=== PATIENT | female | born 1965 | race Caucasian/White ===

== ENCOUNTER 2018-05-21 16:54 | Inpatient (IN) ==
[2018-05-21] MEDS ORDERED: INFLUENZA VIRUS QUAD VACCINE 0.5 ML SYR IM ONE (20:00)
[2018-05-21] MEDS ORDERED: INFLUENZA ADMINISTRATION CHARGE ONE (20:00)
--- NOTE | 2018-05-21 20:04 | History & Physical Report ---
Date of Service May 21, 2018 Assessment & Plan (1) Implantable cardioverter-defibrillator (ICD) generator end of life: Sent from Dr. Parra office Plan to get Dual chamber ICD generator change in am Device interrogation done today at Dr. Valderrama's office Will make NPO after midnight Cardiology Dr. Valderrama consult Will monitor closely in tele (2) Bronchitis: CXR showed no acute disease Has been on amoxicillin Will continue amoxicillin to complete 2 more days (3) Tobacco use: Counseling on smoking cessation (4) CKD (chronic kidney disease), stage III: Creatinine 1.1 today Continue monitor BMP (5) QT prolongation: Will avoid medications that increase QTC prolongation Plan to follow with cardiac genetic counseling (6) Hypokalemia: K 3.4 today K replaced Monitor BMP DVT px will put SCDs due to procedure in am CODE STATUS FULL CODE History of Present Illness Primary Care Provider: Segundo Stroud MD 53 yo F with PMH of dyslipidemia, chronic tobacco use, CKD stage 3, anxiety, depression, NSVT, VF arrest in 2009, celiac disease [facility] ICD generator change. Pt was recently in the ER for acute bronchitis and was discharged with prednisone and amoxicilin (had 2 more days left). Pt has been worsening SOB with minimal exertion. She said that she develops SOB just by going to the bathroom. She has been very tired lately. she said that she had chest pain with coughing that improved. She was sent by cardiology Dr. Parra for dual chamber ICD generator change in the morning. Currently denies any chest pain, palpitation, dizziness and fever. Allergies Allergy/AdvReac Type Severity Reaction Status Date / Time meloxicam Allergy Severe ANAPHYLAXIS Verified 06/04/18 23:12 vancomycin Allergy Unknown RASH Verified 06/04/18 23:12 Quinolones AdvReac Unknown unknown Verified 06/04/18 23:12 MUSCLE RELAXANT Allergy Severe ANAPHYLAXIS Uncoded 06/04/18 23:12 Home Medications Home Medications Medication Instructions Recorded Confirmed Type aspirin 81 mg PO DAILY 05/12/18 06/04/18 History atorvastatin 40 mg PO DAILY 05/12/18 06/04/18 History calcium carbonate 600 mg PO TID 05/12/18 06/04/18 History furosemide 40 mg PO DAILY PRN 05/12/18 06/04/18 History metoprolol succinate 50 mg PO DAILY 05/12/18 06/04/18 History potassium chloride 10 meq PO DAILY 05/12/18 06/04/18 History topiramate 50 mg PO DAILY 05/12/18 06/04/18 History ondansetron HCl 4 mg PO QID PRN 05/21/18 06/04/18 History cetirizine [Zyrtec] 10 mg PO DAILY #30 tab 05/22/18 06/04/18 Rx clonazepam 0.5 mg PO TID PRN #10 tab 05/22/18 06/04/18 Rx omeprazole 20 mg PO BID #60 tab 05/22/18 06/04/18 Rx ranitidine HCl 150 mg PO BID #60 tab 05/22/18 06/04/18 Rx Past Med/Surg History Social History Preferred Language: Surinamese Beliefs That Will Affect Care: None Current Living Situation: Family Feels Safe at Home: Yes Smoking Status: Current every day smoker Hx Alcohol Use: Yes Hx Substance Use: No Review of Systems All systems reviewed & are unremarkable except as noted in HPI & below Physical Exam Vital Signs (Past 24 Hours): Last Vital Signs Temp 37.0 C 05/21/18 19:15 Pulse 62 05/21/18 19:15 Resp 17 05/21/18 19:15 BP 119/78 05/21/18 19:15 Pulse Ox 97 05/21/18 19:15 Physical Exam: General- No acute distress Head- atraumatic Eyes- PERRL, EOMI, ENT- oropharynx clear Neck- supple, no JVD Lungs- clear to auscultation Heart- regular rhythm; no murmur Abdomen- normal bowel sounds, soft, nontender Extremities- no calf tenderness, +trace edema Neuro- alert, oriented x 3; PERRL, EOMI; no facial palsy; no dysarthria Skin- warm & dry Results & Data Diagnostic Findings XR chest 1V portable HISTORY: Shortness of breath. COMPARISON: Chest 05/12/2018. FINDINGS: The heart is borderline enlarged. Left-sided pacemaker/defibrillator is again noted. No pneumothorax. No pleural effusions. No focal lung consolidations to suggest pneumonia. No evidence for pulmonary edema. IMPRESSION: No acute process. Electronically signed by: Arun Alonzo M.D. 05/21/2018 8:36 PM Dictated: 05/21/182035 Transcribed: 05/21/182035
[2018-05-21 20:07] LABS: Hematocrit (blood only) 40.3 % (37-47); Hemoglobin 13.6 g/dL (12.0-16.0); Mean Corpuscular Hgb Conc 33.7 g/dL (32-36); Mean Platelet Volume 9.7 fL (7.4-10.4); Platelet Count 204 K/uL (130-400); RDW Coefficient of Variation 14.3 % (11.5-14.5); RDW Standard Deviation 46.1 fL (36.4-46.3); Red Blood Count 4.53 M/uL (4.2-5.4); White Blood Count 10.77 K/uL (4.8-10.8)
[2018-05-21 20:17] LABS: BUN Creatinine Ratio 9.3 (10-20); Calcium 8.5 mg/dl (8.5-10.1); Creatinine Clr Calc Pharmacy 56.1 ml/min; Est GFR (African American) 63.1; Est GFR (Non-African American) 54.5; Potassium 3.4 mmol/L (3.5-5.1)
--- NOTE | 2018-05-21 20:37 | XRay Report ---
XR chest 1V portable HISTORY: Shortness of breath. COMPARISON: Chest 05/12/2018. FINDINGS: The heart is borderline enlarged. Left-sided pacemaker/defibrillator is again noted. No pne umothorax. No pleural effusions. No focal lung consolidations to suggest pneumonia. No evidence for p ulmonary edema. IMPRESSION: No acute process. Electronically signed by: Arun Alonzo M.D. 05/21/2018 8:36 PM
[2018-05-21] MEDS ORDERED: POTASSIUM CHLORIDE 10 MEQ TABCR PO STA (20:55)
[2018-05-21] MEDS: AMOXICILLIN/CLAVULANATE 875 MG TAB PO SCH (21:46)
[2018-05-22 06:48] LABS: BUN Creatinine Ratio 11.3 (10-20); Creatinine Clr Calc Pharmacy 59.2 ml/min; Est GFR (African American) 67.3; Est GFR (Non-African American) 58.1; Potassium 3.7 mmol/L (3.5-5.1)
--- NOTE | 2018-05-22 07:46 | History & Physical Bridge Note ---
Date of Service May 22, 2018 History & Physical Bridge Note I have examined the patient, reviewed the History & Physical and in the interval since the performance of the History & Physical I have noted the following changes of clinical significance: no changes noted
--- NOTE | 2018-05-22 07:46 | Pre Anesthesia Assessment ---
Date of Service May 22, 2018 Pre Sedation Assessment Vital Signs Temp Pulse Pulse Pulse Resp BP Pulse Ox 05/22/18 07:17 36.7 C 63 19 107/51 L 05/22/18 04:32 36.9 C 68 17 108/43 L 95 05/22/18 00:15 36.8 C 68 15 99/58 L 96 05/22/18 00:00 65 05/21/18 19:30 05/21/18 19:15 37.0 C 62 17 119/78 97 05/21/18 18:21 37.6 C H 67 18 137/77 100 Pulse Ox 05/22/18 07:17 05/22/18 04:32 05/22/18 00:15 05/22/18 00:00 05/21/18 19:30 94 05/21/18 19:15 05/21/18 18:21 Cardiovascular RRR, no murmur, no edema Respiratory normal respiratory effort, lungs clear to auscultation Pre-Sedation Airway Assessment Smoking Status: Current every day smoker Hx Sleep Apnea: No Hx Difficult Intubation: No Short, Thick Neck: No Thyromental Distance: < 3.5 Finger Breadths Oral Cavity: + Dental Abnormalities Mallampati Class: II ASA: ASA3 Procedure Planning Contraindications for Sedation: none Current Medications Reviewed: Yes Notes The planned sedation has been discussed with the patient. Informed Consent was obtained. I have identified the patient, determined the appropriateness of sedation and have assessed the patient immediately prior to the procedure. All medicine(s) and interventions are by my order.
[2018-05-22] MEDS ORDERED: CEFAZOLIN 2000MG 2,000 MG/15 ML SYR IV STA (07:51)
[2018-05-22] MEDS: AMOXICILLIN/CLAVULANATE 875 MG TAB PO SCH (08:01)
[2018-05-22] MEDS ORDERED: POTASSIUM CHLORIDE 10 MEQ TABCR PO SCH (09:00)
[2018-05-22] MEDS ORDERED: METOPROLOL SUCC 50MG EXT REL TAB PO SCH (09:00)
[2018-05-22] MEDS ORDERED: TOPIRAMATE 50 MG TAB PO SCH (09:00)
[2018-05-22] MEDS ORDERED: ATORVASTATIN 40 MG TAB PO SCH (09:00)
[2018-05-22] MEDS ORDERED: FUROSEMIDE 20 MG TAB PO SCH (09:00)
[2018-05-22] MEDS ORDERED: PANTOprazole 40 MG TAB PO SCH (09:00)
[2018-05-22] MEDS ORDERED: fentaNYL citrate 100 MCG/2 ML VIAL ONE (10:38)
[2018-05-22] MEDS ORDERED: MIDAZOLAM HCL 1 MG/ML 2ML VIAL ONE ×2 (10:38→10:58)
[2018-05-22] MEDS ORDERED: CEFAZOLIN 250 MG/ML 1 GM VIAL ONE (10:38)
[2018-05-22] MEDS ORDERED: LIDOCAINE HCL 1% 20 ML VIAL ONE (10:44)
[2018-05-22] MEDS ORDERED: BUPIVACAINE 0.5 % 5 MG/1 ML PF 10ML VIAL ONE (10:44)
--- NOTE | 2018-05-22 11:10 | Hospitalist Progress Note ---
Date of Service May 22, 2018 Assessment & Plan (1) Implantable cardioverter-defibrillator (ICD) generator end of life: Sent from Dr. Parra office Plan to get Dual chamber ICD generator change in am Device interrogation done today at Dr. Valderrama's office Will make NPO after midnight Cardiology Dr. Valderrama consult Will monitor closely in tele (2) Bronchitis: CXR showed no acute disease Has been on amoxicillin Will continue amoxicillin to complete 2 more days (3) Tobacco use: Counseling on smoking cessation (4) CKD (chronic kidney disease), stage III: Creatinine 1.1 today Continue monitor BMP (5) QT prolongation: Will avoid medications that increase QTC prolongation Plan to follow with cardiac genetic counseling (6) Hypokalemia: K 3.4 today K replaced Monitor BMP DVT px will put SCDs due to procedure in am CODE STATUS FULL CODE Physical Exam 2 Vital Signs (Past 24 Hours): Last Vital Signs Temp 36.7 C 05/22/18 07:17 Pulse 63 05/22/18 07:17 Resp 19 05/22/18 07:17 BP 107/51 L 05/22/18 07:17 Pulse Ox 95 05/22/18 04:32
--- NOTE | 2018-05-22 11:39 | Post Anesthesia Assessment ---
Date of Service May 22, 2018 Post Sedation Assessment Vital Signs Temp Pulse Pulse Pulse Resp BP Pulse Ox 05/22/18 07:17 36.7 C 63 19 107/51 L 05/22/18 04:32 36.9 C 68 17 108/43 L 95 05/22/18 00:15 36.8 C 68 15 99/58 L 96 05/22/18 00:00 65 05/21/18 19:30 05/21/18 19:15 37.0 C 62 17 119/78 97 05/21/18 18:21 37.6 C H 67 18 137/77 100 Pulse Ox 05/22/18 07:17 05/22/18 04:32 05/22/18 00:15 05/22/18 00:00 05/21/18 19:30 94 05/21/18 19:15 05/21/18 18:21 Recovery Score Activity: Moves 4 extremities Respiration: Deep Breath/Cough Consciousness: Fully Awake Oxygen Saturation: > 92% On Room Air Discharge Sedation Level of Care: Fast Track Phase II Post Sedation Plan On clinical assessment, the patient appears to have tolerated the sedation without complications. Patient is recovering as anticipated. Patient will continue to be monitored by nursing and may be discharged when sedation discharge criteria are met per below protocol. Upon Completions of procedure and additional 15 minutes continue every 5 minute vital signs and the P.A.R. score; then discharge to a Phase I or Fast Track to Phase II per the following guidelines: * Discharge Patient to appropriate Phase II area if PAR is 8 or greater or return to pre- procedure baseline. The post - procedure orders will be as directed. * If PAR score is less than 8 or not return to pre-procedure baseline then patient will follow Phase I monitoring till PAR is reached for Phase II. The Phase I may be done in procedure room or may call to secure a Phase I area. * �If naloxone or flumazenil are used for reversal, hold in Phase I for continued monitoring from when last reversal dose was given for a minimum of 60 minutes or longer pending the nurse and/or physician discretion of patient condition before discharge to Phase II.� Please call the Sedation Physician to re-evaluate and complete post-note for discharge to Phase II area. Do NOT discharge from procedure sedation or Phase 1 until post- sedation evaluation note is complete by procedure /sedation MD Sedation Discharge Instructions to be given to the patient at discharge to home.
--- NOTE | 2018-05-22 11:40 | Operative Report ---
Post Operative Report Pre & Post Diagnosis ICD at EOS, prolonged QT Operation Date: 05/22/18 12:00 <No data on this case meets the specified criteria> Procedure Operation Date: 05/22/18 12:00 Actual Procedures p ICD Gen Change Dual - Kerrie Parra DO Surgeon Kerrie Parra, Cardiology Specialist none Estimated Blood Loss 5 Findings Consistent with Post-Op Diagnosis Specimens none Description of Procedure see official report I attest to the content of the Intraoperative Record and any orders documented therein. Any exceptions are noted below.
--- NOTE | 2018-05-22 13:20 | Discharge Summary ---
Date of Service May 22, 2018 Admission HPI Per Admitting Provider 53 yo F with PMH of dyslipidemia, chronic tobacco use, CKD stage 3, anxiety, depression, NSVT, VF arrest in 2009, celiac disease was sent from Dr. Parra [facility] as a direct admission for dual chamber ICD generator change. Pt was recently in the ER for acute bronchitis and was discharged with prednisone and amoxicilin (had 2 more days left). Pt has been worsening SOB with minimal exertion. She said that she develops SOB just by going to the bathroom. She has been very tired lately. she said that she had chest pain with coughing that improved. She was sent by cardiology Dr. Parra for dual chamber ICD generator change in the morning. Currently denies any chest pain, palpitation, dizziness and fever. Admission Exam Per Admitting Provider General- No acute distress Head- atraumatic Eyes- PERRL, EOMI, ENT- oropharynx clear Neck- supple, no JVD Lungs- clear to auscultation Heart- regular rhythm; no murmur Abdomen- normal bowel sounds, soft, nontender Extremities- no calf tenderness, +trace edema Neuro- alert, oriented x 3; PERRL, EOMI; no facial palsy; no dysarthria Skin- warm & dry Principal Diagnosis Pacemaker generator end-of-life Postoperative state Discharge Data Allergies Allergy/AdvReac Type Severity Reaction Status Date / Time meloxicam Allergy Severe ANAPHYLAXIS Verified 05/12/18 15:04 vancomycin Allergy Unknown RASH Verified 05/12/18 15:04 Quinolones AdvReac Unknown unknown Verified 05/12/18 15:04 MUSCLE RELAXANT Allergy Severe ANAPHYLAXIS Uncoded 05/12/18 15:04 Consultations 05/21/18 19:30 Consult Cardiology Routine Procedures Performed Operation Date: 05/22/18 12:00 Actual Procedures p ICD Gen Change Dual - Kerrie Parra, Hospital Course (1) Implantable cardioverter-defibrillator (ICD) generator end of life: (2) Bronchitis: (3) Tobacco use: (4) CKD (chronic kidney disease), stage III: 53-year-old female with history of V. fib arrest in [address] Parra ([facility] office for direct admission for dual-chamber ICD generator change. She had recently been in the ER for acute bronchitis which was improved on outpatient prednisone and amoxicillin, which was continued during this hospital stay. She underwent an ICD generator change on 05/22 without complications. Estimated blood loss was 5 cc. She recovered on the floor for the next couple of hours, tolerated p.o. without issue and remained hemodynamically stable. At time of discharge she had no symptoms and was feeling well. We discussed her issues with getting refills for clonazepam from her primary care doctor, with whom she was encouraged to follow-up with. PDMP query revealed clonazepam use was not chronic or persistent with only one dispensation in fall 2017. Ten pills were sent home with her as well as refills on her allergy medication. Primary care follow-up was recommended within the next week to ensure bronchitis was improved and she was doing well in postoperative state. She will follow with the pacemaker clinic as instructed and follow all activity restrictions per Dr. Parra. Total Time Total Time Spent Total Time Spent (In Minutes): 60 Total Time Includes: Examination of the Patient, Discharge Planning, Medication Reconciliation, Communication With Other Providers and Other (follow-up appointment) Discharge Plan Discharge Items Patient Disposition: Home - Self-Care Reason For Visit: ICD REPLACEMENT Discharge Diagnosis: ICD Generator change Condition: Good Discharge Goals: Improve disease control Activity: Per 'Additional Instructions' section Lifting: Gradually increase as tolerated Bathing Comment: can shower 05/23/2018 Driving/Machine Use: Resume 1 day after discharge Non-emergency contact: Primary Care Provider and Slab Worker Call non-emergency contact if: you have any medication questions, your symptoms worsen, your pain is not controlled, your pain is unusual for you and you have a fever Follow-up/Referrals: Segundo Stroud MD [Primary Care Provider] - Diet: Heart Healthy Addtl Provider Instructions: Please take all medications as instructed below. Please follow all activity restrictions and other pos-operative instructions per Cardiology as above. Device and wound check as scheduled at [facility] on Sunday05/31/2018 Someone will contact you regarding a primary care follow-up appointment tomorrow. It was a pleasure taking care of you! Please call if you have any questions or problems. You can reach a [facility] hospitalist on duty at [facility] 24 hours a day by calling [phone]. Take care of yourself. Val Mae, DO [facility] Hospitalist Prescriptions: New ranitidine HCl 150 mg Tablet 150 mg PO BID Qty: 60 RF: 0 omeprazole 20 mg Tablet,Delayed Release (Dr/Ec) 20 mg PO BID Qty: 60 RF: 0 Continue atorvastatin 40 mg tablet 40 mg PO DAILY RF: 0 metoprolol succinate 50 mg tablet extended release 24 hr 50 mg PO DAILY RF: 0 potassium chloride 10 mEq Tablet Extended Release 10 meq PO DAILY RF: 0 aspirin 81 mg Tablet,Delayed Release (Dr/Ec) 81 mg PO DAILY RF: 0 calcium carbonate 600 mg calcium (1,500 mg) tablet 600 mg PO TID RF: 0 furosemide 20 mg Tablet 40 mg PO UD PRN (Reason: Fluid Retention) RF: 0 topiramate 50 mg tablet 50 mg PO DAILY RF: 0 ondansetron HCl 4 mg Tablet 4 mg PO QID PRN (Reason: Nausea) RF: 0 amoxicillin-pot clavulanate 875-125 mg tablet 1 tab PO BID RF: 0 cetirizine [Zyrtec] 10 mg Tablet 10 mg PO DAILY Qty: 30 RF: 0 clonazepam 0.5 mg tablet 0.5 mg PO TID PRN (Reason: Anxiety) Qty: 10 RF: 0 Stand-Alone Forms: [facility] Discharge Orders: Discharge Order (Routine); Ordered 05/22/18 Ordered By: Val Mae Admission Data Admit Date/Time: 05/21/18 17:30 Attending Provider: Val Mae Admit Provider: Kvng Lux Primary Care Provider: Segundo Stroud Other Providers: Kerrie Parra Service: Telemetry Other Interventions: Discharge Summary Assessment (RN) Last Done: 05/22/18 13:38 DC Date/Time DO NOT enter until pt leaves facility: 05/22/18 17:23
--- NOTE | 2018-05-25 00:05 | Operative Report ---
DATE OF OPERATION: 05/22/2018 PREOPERATIVE DIAGNOSES: Implantable cardiac defibrillator at end of service, history of a cardiac arrest, presumed prolonged QT. POSTOPERATIVE DIAGNOSES: Implantable cardiac defibrillator at end of service, history of a cardiac arrest, presumed prolonged QT. PROCEDURE: Dual chamber rate responsive implantable cardiac defibrillator generator change. SURGEON: Kerrie Parra DO ENTRY LEVEL ASSISTANT MANAGER: None. ANESTHESIA: Monitored conscious sedation administered under my supervision by Marquise Damon. Start time 1046 end time 1134, total of 3 mg of Versed and 75 mcg of fentanyl. INTRAVENOUS FLUID: 10 mL ANTIBIOTICS: Two g of Ancef. ESTIMATED BLOOD LOSS: Less than 5 mL URINE OUTPUT: Not applicable. SPECIMENS: None. FINDINGS: See below. DRAINS: None. INDICATIONS: This is a 53-year-old female who has a past medical history for surviving a cardiac arrest, which was presumed to be due to prolonged QT. She underwent an implantable cardiac defibrillator in 2009 and it reached [facility] in 12/2016; however, she was unable to follow up in the office due to transportation issues then eventually showed up in our office this week, where her device at the end of service so she was admitted to the hospital and monitored in preparation for the generator change. CONSENT: Consent was obtained prior to the patient going into electrophysiology lab. The patient was informed of the risks, benefits, and alternative procedure. Risks include but not limited sudden cardiac , cardiac arrhythmias, cerebrovascular accident, myocardial infarction, bleeding, and infection. The patient understood these risks and agreed procedure as planned. Informed consent was obtained. DESCRIPTION OF PROCEDURE: The patient was brought into the electrophysiology lab in a fasting state. The patient was connected to continuous cardiac monitoring. A timeout was performed to ensure patient's identity and procedure correctly. The patient was prepped and draped over the left infraclavicular space in normal surgical standard fashion. Moderate conscious sedation was given throughout the procedure, patient's comfort level. Jackson precautions was maintained throughout the procedure. 10 mL of 1% lidocaine, bupivacaine mixture were given to the prior surgical incision. Incision made over the prior surgical incision. Blunt dissection performed down to the prior pulse generator. The capsule was disrupted using iris scissors. The pulse generator was freed from the capsule and removed from the pocket. The leads were tested intraoperatively, see below for results. The capsule was disrupted inferiorly and caudally to allow for new blood flow. The pocket was then flushed with copious amounts of bacitracin saline wash and inspected for hemostasis. The new generator was then attached to the leads, making sure that the pins were in appropriate position, passed set screw, and set screws were all tightened. The new generator was then placed in an antibiotic pouch and then placed in the pocket, making sure that the leads were lying flat beneath the device. The incision was then closed in 3-layer fashion, 2-0 Vicryl interrupted suture followed, 3-0 Vicryl stitch followed by a 4-0 Monocryl running stitch and Dermabond was applied. EQUIPMENT: 1. Pulse generator is an [employer] RxRevu XT DMRI SureScan [id number], serial number [id number]. 2. Right atrial lead 4076-45 cm, serial number [id number], implanted on 03/08/2010. 3. Right ventricular lead 6947-58 cm, serial number [id number], implanted on 03/08/2010. 4. The antibiotic Tyrx pouch, reference number [id number], lot number [id number]. INTRAOPERATIVE TESTIN. Right atrial lead: P-wave 7.6 millivolts, impedance 513 ohms, threshold 0.5 volts at 0.6 milliamps. 2. Right ventricular lead: R-wave 8.7 millivolts, impedance 666 ohms, threshold 1.4 volts at 2.2 milliamps. FINAL MEASUREMENTS THROUGH THE DEVICE: 1. Right atrial lead P waves 5.8 millivolts, impedance 456 ohms, threshold 0.5 volts at 0.4 milliseconds. 2. Right ventricular lead: R-wave 9.6 millivolts, impedance 589 ohms, threshold 1.5 volts at 0.4 milliseconds. FINAL PARAMETERS: MVP-R 60/140. Right atrial amplitude 1.5 volts, pulse width 0.4 milliseconds, sensitivity 0.3 millivolts. Right ventricular amplitude 3 volts, pulse width 0.4 milliseconds, sensitivity 0.3 millivolts. VT zone is set at 171 beats per minute for 20 detection intervals and a VF zone at 207 beats per minute for 18/24 detection volts. IMPRESSION: Successful rate responsive dual chamber implantable cardiac defibrillator generator change secondary to device end of service and a history of a cardiac arrest and prolonged QT. PLAN: Monitor patient post-anesthesia. She is able to go home today if family can pick her up. From my perspective, she can shower in 2 days, let water run over the incision, do not scrub it, and she should follow up in our [facility] office for device and wound check in 1 week's time. I attest to the content of the Intraoperative Record and any orders documented therein. Any exception s are noted below.
== END 2018-05-22 17:23 | disposition home or self-care (01) | DRG 245 ==
LOC: SUATTDRO 17:30 → 2S 17:30
DX: Z45.02 Encounter for adjustment and management of automatic implantable cardiac defibrillator; E87.6 Hypokalemia; I45.81 Long QT syndrome; J40 Bronchitis, not specified as acute or chronic; N18.3 Chronic kidney disease, stage 3 (moderate); E78.5 Hyperlipidemia, unspecified; Z79.899 Other long term (current) drug therapy; Z86.74 Personal history of sudden cardiac arrest; Z79.82 Long term (current) use of aspirin; F17.210 Nicotine dependence, cigarettes, uncomplicated

== ENCOUNTER 2022-03-22 10:15 | Observation (INO) ==
[2022-03-22] MEDS ORDERED: ASPIRIN CHEW 324 MG PO STA (10:33)
--- NOTE | 2022-03-22 10:40 | Emergency Department Note ---
Impression & Plan Chest pain, Elevated troponin ED Provider Note NAME: ILIANA DORADO AGE: 57 SEX: F : 1965 ARRIVES VIA: Ambulance INFORMANT: Patient ED PROVIDER(S): Abdullahi Oconnor DO CHIEF COMPLAINT: Chest HPI: Patient is a 57-year-old female with a past medical history of a cardiac arrest, CVA, CKD, hypertension, hyperlipidemia, smoker status post ICD that presents to the ER for chest pain. She notes it started around 930. Lasted for about 20 minutes. Admits to shortness of breath with it. No arm or jaw pain. No belly pain, nausea, vomiting, or diarrhea. No dysuria, urgency, or frequency. She notes that she is very anxious and it could be her anxiety but she is not sure. ROS: See above HPI for pertinent positives & negatives. A total of 10 systems reviewed and were otherwise negative. PAST MEDICAL HISTORY:See Below PAST SURGICAL HISTORY:See Below FAMILY HISTORY:See Below SOCIAL HISTORY:See Below HOME MEDICATIONS:See Below ALLERGIES:See Below VITALS:See Below PHYSICAL EXAMINATION: GENERAL: Sitting up in bed, alert, well appearing, well nourished, no distress, non-toxic EYE EXAM: normal conjunctiva. OROPHARYNX: mucous membranes are moist LUNGS: Clear to auscultation. Normal chest wall mechanics HEART: no murmurs, S1 normal and S2 normal ABDOMEN: abdomen soft, non-tender, normo-active bowel sounds, no masses, no rebound or guarding. UPPER EXTREMITIES: upper extremities are grossly normal. LOWER EXTREMITIES: No pitting edema. NEURO EXAM: Normal sensorium, cranial nerves II-XII grossly intact, normal speech, no gross weakness of arms, no gross weakness of legs. MEDICAL DECISION MAKING: Patient is a 57-year-old female who presents the ER with past medical history of AICD, cardiomyopathy, cardiac arrest, CKD, CAD for chest pain. She does take apixaban and has not missed any doses. IV was established blood work was obtained. Labs show no significant leukocytosis or anemia. BMP with slightly elevated chloride at 109. LFTs bilirubin was unremarkable. Lipase was normal. Troponin was elevated at 15. COVID was negative. EKG was nondiagnostic. Discussed with Dr. Babak Cassidy for further evaluation and admission. He discussed with cardiology and they did not recommend admission and stress test t omorrow. Patient later refused and consequently Dr. Cassidy ordered a repeat troponin. Repeat troponin increased and patient was agreeable to staying. Patient will be admitted by the hospitalist. Triage Nursing notes reviewed. Limited review of prior medical records performed Vital Signs: reviewed and remarkable for no significant abnormalities Differential diagnosis: Cardiac ischemia, aortic dissection, pulmonary embolism, pneumothorax, pne umonia, pericarditis, myocarditis, esophageal rupture, GERD, cholecystitis, pancreatitis, musculoskeletal, as well as other pathologies. ER treatment provided: See below Diagnostics interpreted by me: ECG: Sinus rhythm rate of 62 Left axis Septal Q waves T wave inversion in V4 through V6 T wave versions in the inferior leads QTC 436 Slightly changed from previous Cardiac Monitoring: An order was placed for continuous cardiac monitoring. The monitor shows a rate of 70 with sinus rhythm. Laboratory studies: As stated above and show below. Imaging studies: Portable AP upright 1 view of the chest unremarkable Consultation(s): Discussed with Dr. Babak Cassidy for admission and further evaluation Procedures: none Critical Care: None Past Med/Surg History Medical History AICD discharge (04/14/13) Anxiety Cardiac arrest "apparently secondary to ventricular arrhythmia 2009" Cardiomyopathy CKD (chronic kidney disease), stage III Depression Dyslipidemia Fracture, metacarpal Fracture, metacarpal Headache Myoclonus Briefly in 2016 Nonepileptic episode 2013, seen by Dr. Marie Pain, dental QT prolongation Stroke Tobacco use Surgical History Status post cholecystectomy Status post hysterectomy Status post implantation of automatic cardioverter/defibrillator (AICD) Family History Other No pertinent family history in first degree relatives Social History Smoking Status: Current every day smoker Tobacco Type: Cigarettes Second Hand Exposure: Yes; Hx Alcohol Use: Yes Alcohol type: hard liquor Hx Substance Use: No Preferred Language: Portuguese Communication Ability: Effective Stock Puller Required: No Beliefs That Will Affect Care: None Current Living Situation: Family Feels Safe at Home: Yes Assistive Devices: None Allergies Allergies Allergy/AdvReac Type Severity Reaction Status Date / Time meloxicam Allergy Severe ANAPHYLAXIS Verified 11/12/19 15:28 vancomycin Allergy Unknown RASH Verified 11/12/19 15:28 Quinolones AdvReac Unknown unknown Verified 11/12/19 15:28 MUSCLE RELAXANT Allergy Severe ANAPHYLAXIS Uncoded 11/12/19 15:28 Avelox TABS Allergy Unknown Uncoded 11/12/19 15:28 Ciprofloxacin HCl TABS Allergy Unknown Uncoded 11/12/19 15:28 Ibuprofen TABS Allergy Unknown Uncoded 11/12/19 15:28 Levaquin TABS Allergy Unknown Uncoded 11/12/19 15:28 levoFLOXacin TABS Allergy Unknown Uncoded 11/12/19 15:28 Naproxen TABS Allergy Unknown Uncoded 11/12/19 15:28 Home Meds Home Medications Medication Instructions Recorded Confirmed atorvastatin 40 mg tablet 40 mg PO DAILY 05/12/18 11/12/19 calcium carbonate 600 mg calcium 600 mg PO TID 05/12/18 11/12/19 (1,500 mg) tablet potassium chloride 10 mEq 10 meq PO DAILY 05/12/18 11/12/19 tablet,extended release apixaban 5 mg tablet (Eliquis) 5 mg PO BID 09/30/19 11/12/19 bupropion HCl 300 mg 24 hr tablet, 300 mg PO QAM 09/30/19 11/12/19 extended release (Wellbutrin XL) clonazepam 1 mg tablet 1 mg PO BID 09/30/19 11/12/19 clopidogrel 75 mg tablet (Plavix) 75 mg PO DAILY 09/30/19 11/12/19 furosemide 20 mg tablet 20 mg PO DAILY PRN Fluid Retention 09/30/19 11/12/19 gabapentin 300 mg capsule 300 mg PO DAILY 09/30/19 11/12/19 melatonin PO 09/30/19 11/12/19 metoprolol succinate 50 mg 25 mg PO BID 09/30/19 11/12/19 tablet,extended release 24 hr pantoprazole 20 mg tablet,delayed 20 mg PO BID 09/30/19 11/12/19 release Previous Rx's Medication Instructions Recorded cetirizine 10 mg tablet (Zyrtec) 10 mg PO DAILY #30 tabs 05/22/18 omeprazole 20 mg tablet,delayed 20 mg PO BID #60 tabs 05/22/18 release topiramate 200 mg tablet 200 mg PO BID 30 days #60 tabs 05/17/20 Results & Data (ED) Vital Signs Vital Signs - 24 hr 03/22/22 10:20 03/22/22 10:20 03/22/22 10:23 Pulse Rate 66 Pulse Rate from SpO2 Sensor Respiratory Rate 18 Respiratory Effort / Characteristics Non-Labored Spontaneous Respiratory Depth Normal Blood Pressure 128/52 L Blood Pressure Mean 77 Blood Pressure Position Sitting Pulse Oximetry 99 100 100 Oxygen Delivery Method Room Air Room Air Room Air Sepsis Recent Fever Within 48 Hours No Sepsis New/Unexplained Change in Mental Status N/A Sepsis Action Taken by Nursing No Action Required 03/22/22 10:31 03/22/22 11:00 03/22/22 11:31 Pulse Rate 72 73 66 Pulse Rate from SpO2 Sensor 65 67 66 Respiratory Rate 14 17 17 Respiratory Effort / Characteristics Respiratory Depth Blood Pressure 123/72 133/89 115/75 Blood Pressure Mean 89 103 88 Blood Pressure Position Pulse Oximetry 100 99 100 Oxygen Delivery Method Room Air Room Air Room Air Sepsis Recent Fever Within 48 Hours Sepsis New/Unexplained Change in Mental Status Sepsis Action Taken by Nursing 03/22/22 12:02 03/22/22 13:00 Pulse Rate 60 61 Pulse Rate from SpO2 Sensor 60 62 Respiratory Rate 16 14 Respiratory Effort / Characteristics Respiratory Depth Blood Pressure 94/48 L 115/64 Blood Pressure Mean 63 81 Blood Pressure Position Pulse Oximetry 99 99 Oxygen Delivery Method Room Air Room Air Sepsis Recent Fever Within 48 Hours Sepsis New/Unexplained Change in Mental Status Sepsis Action Taken by Nursing Laboratory Data Result diagrams: 03/22/22 10:47 03/22/22 10:47 Lab Results 03/22/22 03/22/22 03/22/22 Range/Units 10:47 10:47 14:03 WBC 6.98 (4.8-10.8) K/ul RBC 4.23 (3.93-5.22) M/uL Hgb 12.7 (12.0-16.0) g/dl Hct 38.7 (34.1-44.9) % MCV 91.5 (80.0-100.0) fL MCH 30.0 (25.0-34.0) pg MCHC 32.8 (32.0-36.0) g/dL RDW Std Deviation 42.7 (36.4-46.3) fL RDW Coeff of [place] 12.9 (11.5-14.5) % Plt Count 188 (130-400) K/uL MPV 10.0 (9.4-12.3) fL Immature Gran % (Auto) 0.1 % Neut % (Auto) 61.1 % Lymph % (Auto) 29.5 % [place] % (Auto) 6.3 % Eos % (Auto) 1.9 % Baso % (Auto) 1.1 % Neut # (Auto) 4.26 (1.4-6.5) K/uL Lymph # (Auto) 2.06 (1.2-3.4) K/uL [place] # (Auto) 0.44 (0.24-0.82) K/uL Eos # (Auto) 0.13 (0-0.50) K/uL Baso # (Auto) 0.08 (0-0.2) K/uL Immature Gran # (Auto) 0.01 (0.00-0.02) K/uL Sodium 142 (136-145) mmol/L Potassium 4.0 (3.5-5.1) mmol/L Chloride 109 H (98-107) mmol/L Carbon Dioxide 27 (21-32) mmol/L Anion Gap 6 (3-11) BUN 19 (6-23) mg/dl Creatinine 0.93 (0.6-1.2) mg/dl Est Cr Clr Drug Dosing 59.4 ml/min Est GFR ( Amer) 80.2 ml/min Est GFR (Non-Af Amer) 69.2 ml/min BUN/Creatinine Ratio 20.4 H (10-20) Glucose 94 (70-99(Fasting)) mg/dl Calcium 9.3 (8.5-10.1) mg/dl Total Bilirubin 0.3 (0.2-1.0) mg/dl AST 12 L (13-39) U/L ALT 8 (7-52) U/L Alkaline Phosphatase 69 (34-104) U/L Troponin I High Sens 15.1 H 20.4 H (0-14) pg/ml Total Protein 6.9 (6.0-8.3) gm/dl Albumin 4.1 (3.4-5.0) gm/dl Globulin 2.8 (2.5-4.0) gm/dl Albumin/Globulin Ratio 1.5 (0.9-2) Lipase 31 (11-82) U/L SARS-CoV-2, RNA, NAAT (NEGATIVE) 03/22/22 Range/Units Unknown WBC (4.8-10.8) K/ul RBC (3.93-5.22) M/uL Hgb (12.0-16.0) g/dl Hct (34.1-44.9) % MCV (80.0-100.0) fL MCH (25.0-34.0) pg MCHC (32.0-36.0) g/dL RDW Std Deviation (36.4-46.3) fL RDW Coeff of [place]li[place] (11.5-14.5) % Plt Count (130-400) K/uL MPV (9.4-12.3) fL Immature Gran % (Auto) % Neut % (Auto) % Lymph % (Auto) % [place] % (Auto) % Eos % (Auto) % Baso % (Auto) % Neut # (Auto) (1.4-6.5) K/uL Lymph # (Auto) (1.2-3.4) K/uL [place] # (Auto) (0.24-0.82) K/uL Eos # (Auto) (0-0.50) K/uL Baso # (Auto) (0-0.2) K/uL Immature Gran # (Auto) (0.00-0.02) K/uL Sodium (136-145) mmol/L Potassium (3.5-5.1) mmol/L Chloride (98-107) mmol/L Carbon Dioxide (21-32) mmol/L Anion Gap (3-11) BUN (6-23) mg/dl Creatinine (0.6-1.2) mg/dl Est Cr Clr Drug Dosing ml/min Est GFR ( Amer) ml/min Est GFR (Non-Af Amer) ml/min BUN/Creatinine Ratio (10-20) Glucose (70-99(Fasting)) mg/dl Calcium (8.5-10.1) mg/dl Total Bilirubin (0.2-1.0) mg/dl AST (13-39) U/L ALT (7-52) U/L Alkaline Phosphatase (34-104) U/L Troponin I High Sens (0-14) pg/ml Total Protein (6.0-8.3) gm/dl Albumin (3.4-5.0) gm/dl Globulin (2.5-4.0) gm/dl Albumin/Globulin Ratio (0.9-2) Lipase (11-82) U/L SARS-CoV-2, RNA, NAAT NEGATIVE (NEGATIVE) Administered Medications Discontinued Medications Aspirin (Aspirin Chew 324 Mg) 324 mg PO NOW STA Stop: 03/22/22 10:34 Last Admin: 03/22/22 11:01 Dose: 324 mg Documented By: [place] Imaging Data Radiologist's Impression: Chest X-Ray 03/22/22 10:23 XR chest 1V portable HISTORY: Atypical Chest pain, nonspecific COMPARISON: Chest 01/05/2019. FINDINGS: The lungs are clear. Cardiac silhouette is normal in size. No pleural effusions. No pneumothorax. There is a left-sided pacemaker/defibrillator. IMPRESSION: No acute process. ACT 112: Negative or not required by law. Electronically signed by: Arun Alonzo M.D. 03/22/2022 10:48 AM Discharge Plan Visit Data Chief Complaint: Chest Pain Stated Complaint: CHEST PAIN, ANXIETY ED Provider: Abdullahi Oconnor Discharge Problem: Chest pain, Elevated troponin Forms Stand Alone Forms: My [facility] Prescriptions Prescriptions: No Action topiramate 200 mg tablet 200 mg PO BID 30 Days Qty: 60 5RF Rx Instructions: take 100 mg in the morning, and 200 mg in the evening for 1 week, then 200 mg twice daily thereafter. clonazepam 1 mg tablet 1 mg PO BID Eliquis 5 mg tablet 5 mg PO BID clopidogrel [Plavix] 75 mg tablet 75 mg PO DAILY gabapentin 300 mg capsule 300 mg PO DAILY melatonin PO pantoprazole 20 mg tablet,delayed release (DR/EC) 20 mg PO BID bupropion HCl [Wellbutrin XL] 300 mg tablet extended release 24 hr 300 mg PO QAM atorvastatin 40 mg tablet 40 mg PO DAILY potassium chloride 10 mEq Tablet Extended Release 10 meq PO DAILY calcium carbonate 600 mg calcium (1,500 mg) tablet 600 mg PO TID furosemide 20 mg tablet 20 mg PO DAILY PRN (Reason: Fluid Retention) metoprolol succinate 50 mg tablet extended release 24 hr 25 mg PO BID cetirizine [Zyrtec] 10 mg Tablet 10 mg PO DAILY Qty: 30 0RF omeprazole 20 mg Tablet,Delayed Release (Dr/Ec) 20 mg PO BID Qty: 60 0RF Referrals Referrals: Sanjay Farias [Other]
--- NOTE | 2022-03-22 10:50 | XRay Report ---
XR chest 1V portable HISTORY: Atypical Chest pain, nonspecific COMPARISON: Chest 01/05/2019. FINDINGS: The lungs are clear. Cardiac silhouette is normal in size. No pleural effusions. No pneumot horax. There is a left-sided pacemaker/defibrillator. IMPRESSION: No acute process. ACT 112: Negative or not required by law. Electronically signed by: Arun Alonzo M.D. 03/22/2022 10:48 AM
[2022-03-22 11:10] LABS: Basophils # (auto) 0.08 K/uL (0-0.2); Basophils % (auto) 1.1 %; Eosinophils # (auto) 0.13 K/uL (0-0.50); Eosinophils % (auto) 1.9 %; Hematocrit (blood only) 38.7 % (34.1-44.9); Hemoglobin 12.7 g/dl (12.0-16.0); Immature Granulocytes # (auto) 0.01 K/uL (0.00-0.02); Immature Granulocytes % (auto) 0.1 %; Lymphocytes # (auto) 2.06 K/uL (1.2-3.4); Lymphocytes % (auto) 29.5 %; Mean Corpuscular Hgb Conc 32.8 g/dL (32.0-36.0); Mean Corpuscular Volume 91.5 fL (80.0-100.0); Monocytes # (auto) 0.44 K/uL (0.24-0.82); Monocytes % (auto) 6.3 %; Neutrophils # (auto) 4.26 K/uL (1.4-6.5); Neutrophils % (auto) 61.1 %; Platelet Count 188 K/uL (130-400); RDW Coefficient of Variation 12.9 % (11.5-14.5); RDW Standard Deviation 42.7 fL (36.4-46.3); Red Blood Count 4.23 M/uL (3.93-5.22); White Blood Count 6.98 K/ul (4.8-10.8)
[2022-03-22 11:32] LABS: Albumin Globulin Ratio 1.5 (0.9-2); Albumin Level 4.1 gm/dl (3.4-5.0); BUN Creatinine Ratio 20.4 (10-20); Bilirubin,Total 0.3 mg/dl (0.2-1.0); Calcium 9.3 mg/dl (8.5-10.1); Creatinine Clr Calc Pharmacy 59.4 ml/min; Est GFR (African American) 80.2 ml/min; Est GFR (Non-African American) 69.2 ml/min; Globulin 2.8 gm/dl (2.5-4.0); Total Protein 6.9 gm/dl (6.0-8.3)
[2022-03-22 11:38] LABS: Troponin I High Sensitivity 15.1 pg/ml (0-14)
--- NOTE | 2022-03-22 13:51 | Hospitalist Consultation ---
Date of Consultation March 22, 2022 Assessment & Plan (1) Chest pain: Single episode of chest pain resolving in 20 minutes without associated symptoms. EKGs today do show T wave inversions in V4V6 which are new from prior EKGs in 2019. The case was discussed with Dr. Oconnor and Dr. Welsh. Dr. Welsh recommended an echocardiogram today, following troponins and EKGs, and dobutamine stress test tomorrow. This was relayed to the patient who reported that she did not want to stay in the hospital, and assured me that she would arrange stress test with her PCP as outpatient. Patient is fully alert and oriented. She is fully capable of making her own medical decisions. A second troponin will be checked, and if this is stable from the prior, she will be discharged with close PCP follow-up. Whether this discharge is AGAINST MEDICAL ADVICE or not, I will defer to the ER physician. While not advisable, she is not in imminent risk of life or limb, so I do not feel strongly about discharging her AGAINST MEDICAL ADVICE. She was advised that she can always return to the ER if her chest pain were to recur. History of Present Illness History of Present Illness 57-year-old female with a history of stroke, V. fib arrest in 2009 who presents with an episode of chest pain. The patient reports that the chest pain occurred around 930 this morning. She reports she was on the phone with her 2 daughters at the time of the chest pain. The chest pain lasted for approximately 20 minutes and resolved without any intervention by the patient. There is no radiation of the chest pain, and the patient denies any associated symptoms such as shortness of breath, palpitations, lightheadedness, nausea/vomiting, upset stomach, or anything else. The patient reports that this has never happened to her before. She reports that she does not get out very often, but has never had chest pain with exertion. The patient reports that the chest pain resolved by the time she got to the hospital, and has not recurred since. Allergies Allergy/AdvReac Type Severity Reaction Status Date / Time meloxicam Allergy Severe ANAPHYLAXIS Verified 11/12/19 15:28 vancomycin Allergy Unknown RASH Verified 11/12/19 15:28 Quinolones AdvReac Unknown unknown Verified 11/12/19 15:28 MUSCLE RELAXANT Allergy Severe ANAPHYLAXIS Uncoded 11/12/19 15:28 Avelox TABS Allergy Unknown Uncoded 11/12/19 15:28 Ciprofloxacin HCl TABS Allergy Unknown Uncoded 11/12/19 15:28 Ibuprofen TABS Allergy Unknown Uncoded 11/12/19 15:28 Levaquin TABS Allergy Unknown Uncoded 11/12/19 15:28 levoFLOXacin TABS Allergy Unknown Uncoded 11/12/19 15:28 Naproxen TABS Allergy Unknown Uncoded 11/12/19 15:28 Home Medications Medication Instructions Recorded Confirmed Type atorvastatin 40 mg tablet 40 mg PO DAILY 05/12/18 11/12/19 History calcium carbonate 600 mg calcium 600 mg PO TID 05/12/18 11/12/19 History (1,500 mg) tablet potassium chloride 10 mEq 10 meq PO DAILY 05/12/18 11/12/19 History tablet,extended release cetirizine 10 mg tablet (Zyrtec) 10 mg PO DAILY #30 tabs 05/22/18 11/12/19 Rx omeprazole 20 mg tablet,delayed 20 mg PO BID #60 tabs 05/22/18 11/12/19 Rx release apixaban 5 mg tablet (Eliquis) 5 mg PO BID 09/30/19 11/12/19 History bupropion HCl 300 mg 24 hr tablet, 300 mg PO QAM 09/30/19 11/12/19 History extended release (Wellbutrin XL) clonazepam 1 mg tablet 1 mg PO BID 09/30/19 11/12/19 History clopidogrel 75 mg tablet (Plavix) 75 mg PO DAILY 09/30/19 11/12/19 History furosemide 20 mg tablet 20 mg PO DAILY PRN Fluid Retention 09/30/19 11/12/19 History gabapentin 300 mg capsule 300 mg PO DAILY 09/30/19 11/12/19 History melatonin PO 09/30/19 11/12/19 History metoprolol succinate 50 mg 25 mg PO BID 09/30/19 11/12/19 History tablet,extended release 24 hr pantoprazole 20 mg tablet,delayed 20 mg PO BID 09/30/19 11/12/19 History release topiramate 200 mg tablet 200 mg PO BID 30 days #60 tabs 05/17/20 Rx Patient History Medical History AICD discharge (04/14/13) Anxiety Cardiac arrest "apparently secondary to ventricular arrhythmia 2009" Cardiomyopathy CKD (chronic kidney disease), stage III Depression Dyslipidemia Fracture, metacarpal Fracture, metacarpal Headache Myoclonus Briefly in 2016 Nonepileptic episode 2013, seen by Dr. Marie Pain, dental QT prolongation Stroke Tobacco use Surgical History Status post cholecystectomy Status post hysterectomy Status post implantation of automatic cardioverter/defibrillator (AICD) Family History Other No pertinent family history in first degree relatives Social History Smoking Status: Current every day smoker Tobacco Type: Cigarettes Second Hand Exposure: Yes; Hx Alcohol Use: Yes Alcohol type: hard liquor Hx Substance Use: No Preferred Language: Turkmen Communication Ability: Effective Case Assistant Required: No Beliefs That Will Affect Care: None Current Living Situation: Family Feels Safe at Home: Yes Assistive Devices: None Review of Systems Review of Systems: All systems reviewed & are unremarkable except as noted in HPI & below Physical Exam Constitutional: WD/WN, vitals as above Eyes: EOM intact bilaterally; no conjunctival abnormality ENMT: external ear and nose normal, oropharynx normal Neck: trachea midline, no thyromegaly normal visual inspection Respiratory: normal respiratory effort, lungs clear to auscultation no respiratory distress Cardiovascular: RRR, no murmur, no edema Chest (Breasts): Chest: + pacemaker Gastrointestinal (Abdomen): Inspection/Auscultation: abdomen normal to inspection; abdomen not distended Musculoskeletal: no cyanosis or clubbing, extremities motor strength 5/5 Skin: no rashes, warm and dry Neurologic: moves all extremities and awake Psychiatric: Orientation: alert, oriented to person and cooperative Results & Data Results & Data ([facility]) Vital Signs (Past 12 Hours) Vital Signs Pulse Resp BP Pulse Ox O2 Del Method 03/22/22 13:00 61 14 115/64 99 Room Air 03/22/22 12:02 60 16 94/48 L 99 Room Air 03/22/22 11:31 66 17 115/75 100 Room Air 03/22/22 11:00 73 17 133/89 99 Room Air 03/22/22 10:31 72 14 123/72 100 Room Air 03/22/22 10:23 100 Room Air 03/22/22 10:20 100 Room Air 03/22/22 10:20 66 18 128/52 L 99 Room Air PG Care Time/CCT Total # of Minutes Spent Total Time Spent with Patient: Total time spent is greater than 50% in coordination of care (as documented) at patient's floor/unit and/or counseling patient: Coding Level of Care Code 98568 Office/OBS Consult Lvl 4 Diagnoses Chest pain R07.9
--- NOTE | 2022-03-22 15:24 | History & Physical Report ---
Date of Service March 22, 2022 Assessment & Plan (1) Chest pain: Plan: Single episode of chest pain resolving in 20 minutes without associated symptoms. EKGs today do show T wave inversions in V4V6 which are new from prior EKGs in 2019. The case was discussed with Dr. Oconnor and Dr. Welsh. Dr. Welsh recommended an echocardiogram today, following troponins and EKGs, and dobutamine stress test tomorrow. - Trend troponins and EKGs - Echo pending today - Stress echo tomorrow (2) Cardiac arrest: Plan: In notes, due to Vfib arrest in 2009. ICD last changed out by [facility] SUN in 2019. - No acute needs (3) CVA (cerebral vascular accident): Plan: In 12/2018. Had tPA pushed and then went to [facility] because there was some question of interventional neurology procedure, but in the end, no intervention was done per report. - Continue Plavix (4) Dyslipidemia: Plan: - Continue statin (5) Anxiety: Plan: - Continue bupropion, clonazepam - Continue topiramate for headaches (6) DVT prophylaxis: Plan: Hx of DVT in 09/2019 per neurology note. Was supposed to be on Eliquis for 3 months per that note. When asked, patient was never told to stop it and has continued it. - Continue apixaban - F/u with PCP in regards to if she needs to continue it. FULL CODE - Per patient in ER History of Present Illness Primary Care Provider: Sanjay Raymond DO 57-year-old female with a history of stroke, V. fib arrest in 2009 who presents with an episode of chest pain. The patient reports that the chest pain occurred around 930 this morning. She reports she was on the phone with her 2 daughters at the time of the chest pain. The chest pain lasted for approximately 20 minutes and resolved without any intervention by the patient. There is no radiation of the chest pain, and the patient denies any associated symptoms such as shortness of breath, palpitations, lightheadedness, nausea/vomiting, upset stomach, or anything else. The patient reports that this has never happened to her before. She reports that she does not get out very often, but has never had chest pain with exertion. The patient reports that the chest pain resolved by the time she got to the hospital, and has not recurred since. Patient initially willing to be admitted to the hospital, then decided she would prefer following up with her PCP as outpatient, then finally decided that she would remain in the hospital for a stress test. Allergies Allergy/AdvReac Type Severity Reaction Status Date / Time meloxicam Allergy Severe ANAPHYLAXIS Verified 11/12/19 15:28 vancomycin Allergy Unknown RASH Verified 11/12/19 15:28 Quinolones AdvReac Unknown unknown Verified 11/12/19 15:28 MUSCLE RELAXANT Allergy Severe ANAPHYLAXIS Uncoded 11/12/19 15:28 Avelox TABS Allergy Unknown Uncoded 11/12/19 15:28 Ciprofloxacin HCl TABS Allergy Unknown Uncoded 11/12/19 15:28 Ibuprofen TABS Allergy Unknown Uncoded 11/12/19 15:28 Levaquin TABS Allergy Unknown Uncoded 11/12/19 15:28 levoFLOXacin TABS Allergy Unknown Uncoded 11/12/19 15:28 Naproxen TABS Allergy Unknown Uncoded 11/12/19 15:28 Home Medications Medication Instructions Recorded Confirmed Type atorvastatin 40 mg tablet 40 mg PO DAILY 05/12/18 11/12/19 History calcium carbonate 600 mg calcium 600 mg PO TID 05/12/18 11/12/19 History (1,500 mg) tablet potassium chloride 10 mEq 10 meq PO DAILY 05/12/18 11/12/19 History tablet,extended release cetirizine 10 mg tablet (Zyrtec) 10 mg PO DAILY #30 tabs 05/22/18 11/12/19 Rx omeprazole 20 mg tablet,delayed 20 mg PO BID #60 tabs 05/22/18 11/12/19 Rx release apixaban 5 mg tablet (Eliquis) 5 mg PO BID 09/30/19 11/12/19 History bupropion HCl 300 mg 24 hr tablet, 300 mg PO QAM 09/30/19 11/12/19 History extended release (Wellbutrin XL) clonazepam 1 mg tablet 1 mg PO BID 09/30/19 11/12/19 History clopidogrel 75 mg tablet (Plavix) 75 mg PO DAILY 09/30/19 11/12/19 History furosemide 20 mg tablet 20 mg PO DAILY PRN Fluid Retention 09/30/19 11/12/19 History gabapentin 300 mg capsule 300 mg PO DAILY 09/30/19 11/12/19 History melatonin PO 09/30/19 11/12/19 History metoprolol succinate 50 mg 25 mg PO BID 09/30/19 11/12/19 History tablet,extended release 24 hr pantoprazole 20 mg tablet,delayed 20 mg PO BID 09/30/19 11/12/19 History release topiramate 200 mg tablet 200 mg PO BID 30 days #60 tabs 05/17/20 Rx Past Med/Surg History Medical History AICD discharge (04/14/13) Anxiety Cardiac arrest "apparently secondary to ventricular arrhythmia 2009" Cardiomyopathy CKD (chronic kidney disease), stage III Depression Dyslipidemia Fracture, metacarpal Fracture, metacarpal Headache Myoclonus Briefly in 2016 Nonepileptic episode 2013, seen by Dr. Marie Pain, dental QT prolongation Stroke Tobacco use Surgical History Status post cholecystectomy Status post hysterectomy Status post implantation of automatic cardioverter/defibrillator (AICD) Family History Other No pertinent family history in first degree relatives Social History Smoking Status: Current every day smoker Tobacco Type: Cigarettes Second Hand Exposure: Yes; Hx Alcohol Use: Yes Alcohol type: hard liquor Hx Substance Use: No Preferred Language: Japanese Communication Ability: Effective Medical Transcriptionist Required: No Beliefs That Will Affect Care: None Current Living Situation: Family Feels Safe at Home: Yes Assistive Devices: None Review of Systems Review of Systems: All systems reviewed & are unremarkable except as noted in HPI & below Physical Exam Constitutional: WD/WN, vitals as above Eyes: EOM intact bilaterally; no conjunctival abnormality ENMT: external ear and nose normal, oropharynx normal Neck: trachea midline, no thyromegaly normal visual inspection Respiratory: normal respiratory effort, lungs clear to auscultation no re spiratory distress Cardiovascular: RRR, no murmur, no edema Chest (Breasts): Chest: + pacemaker Gastrointestinal (Abdomen): Inspection/Auscultation: abdomen normal to inspection; abdomen not distended Musculoskeletal: no cyanosis or clubbing, extremities motor strength 5/5 Skin: no rashes, warm and dry Neurologic: moves all extremities and awake Psychiatric: Orientation: alert, oriented to person and cooperative Results & Data Results & Data ([facility]) Vital Signs (Past 12 Hours) Vital Signs Pulse Resp BP Pulse Ox O2 Del Method 03/22/22 13:00 61 14 115/64 99 Room Air 03/22/22 12:02 60 16 94/48 L 99 Room Air 03/22/22 11:31 66 17 115/75 100 Room Air 03/22/22 11:00 73 17 133/89 99 Room Air 03/22/22 10:31 72 14 123/72 100 Room Air 03/22/22 10:23 100 Room Air 03/22/22 10:20 100 Room Air 03/22/22 10:20 66 18 128/52 L 99 Room Air Code Status & VTE Plan VTE Prophylaxis Plan VTE Prophylaxis will be ordered: Yes PG Care Time/CCT Total # of Minutes Spent Total Time Spent with Patient: Total time spent is greater than 50% in coordination of care (as documented) at patient's floor/unit and/or counseling patient: Coding Level of Care Code INT OBSERVATION CARE 70M LVL 3 Diagnoses Chest pain R07.9 Cardiac arrest I46.9 CVA (cerebral vascular accident) I63.9 Dyslipidemia E78.5 Anxiety F41.9 DVT prophylaxis Z29.9
[2022-03-22] MEDS ORDERED: ONDANSETRON INJ 2 MG/ML 2 ML VIAL IV PRN (16:51)
[2022-03-22] MEDS ORDERED: ACETAMINOPHEN 325 MG TAB PO PRN (16:51)
[2022-03-22] MEDS ORDERED: PNEUMOCOCCAL POLYSACCHARIDES 25 MCG/0.5 ML VIAL/SYR IM ONE (16:59)
[2022-03-22] MEDS ORDERED: FLUARIX QUADRIVALENT 0.5 ML SYR IM ONE (16:59)
--- NOTE | 2022-03-22 17:34 | XCELERA ---
[id number]
[2022-03-22] MEDS: TOPIRAMATE 100 MG TAB PO SCH (20:40)
[2022-03-22] MEDS: MELATONIN 3 MG TAB PO SCH (20:42)
[2022-03-22] MEDS: clonazePAM 1 MG TAB PO SCH (20:42)
[2022-03-22] MEDS: PANTOprazole 40 MG TAB PO SCH (20:45)
[2022-03-22] MEDS: APIXABAN 5 MG TABLET PO SCH (20:47)
[2022-03-22] MEDS: METOPROLOL SUCC 25MG EXT REL TAB PO SCH (20:48)
[2022-03-22] MEDS: GABAPENTIN 300 MG CAP PO SCH (22:45)
--- NOTE | 2022-03-22 22:47 | Communication Note ---
Date of Service: March 22, 2022 Modified orders per patient request/update on her home med list. She states that she takes gabapentin at night and no longer takes bupropion. She takes Paxil 10 mg at night.
[2022-03-23 06:42] LABS: Hematocrit (blood only) 36.5 % (34.1-44.9); Hemoglobin 12.1 g/dl (12.0-16.0); Mean Corpuscular Hemoglobin 30.1 pg (25.0-34.0); Mean Corpuscular Hgb Conc 33.2 g/dL (32.0-36.0); Mean Corpuscular Volume 90.8 fL (80.0-100.0); Mean Platelet Volume 9.9 fL (9.4-12.3); Platelet Count 170 K/uL (130-400); RDW Coefficient of Variation 12.7 % (11.5-14.5); RDW Standard Deviation 42.2 fL (36.4-46.3); Red Blood Count 4.02 M/uL (3.93-5.22); White Blood Count 6.52 K/ul (4.8-10.8)
[2022-03-23 07:02] LABS: BUN Creatinine Ratio 24.1 (10-20); Calcium 8.3 mg/dl (8.5-10.1); Creatinine Clr Calc Pharmacy 49.9 ml/min; Est GFR (African American) 66.9 ml/min; Est GFR (Non-African American) 57.7 ml/min; Magnesium 1.9 mg/dl (1.7-2.4); Potassium 3.5 mmol/L (3.5-5.1)
[2022-03-23 07:11] LABS: Troponin I High Sensitivity 13.3 pg/ml (0-14)
[2022-03-23] MEDS ORDERED: buPROPion XL 300 MG TABCR PO SCH (09:00)
[2022-03-23] MEDS ORDERED: GABAPENTIN 300 MG CAP PO SCH (09:00)
[2022-03-23] MEDS: APIXABAN 5 MG TABLET PO SCH ×2 (09:19→21:50)
[2022-03-23] MEDS: PANTOprazole 40 MG TAB PO SCH ×2 (09:19→21:49)
[2022-03-23] MEDS: ATORVASTATIN 40 MG TAB PO SCH (09:19)
[2022-03-23] MEDS: METOPROLOL SUCC 25MG EXT REL TAB PO SCH ×2 (09:19→21:53)
[2022-03-23] MEDS: TOPIRAMATE 100 MG TAB PO SCH ×2 (09:19→21:48)
[2022-03-23] MEDS: CLOPIDOGREL BISULFATE 75 MG TAB PO SCH (09:19)
[2022-03-23] MEDS: clonazePAM 1 MG TAB PO SCH ×3 (09:22→21:47)
--- NOTE | 2022-03-23 09:33 | Cardiology Consultation ---
Date of Consultation March 23, 2022 Assessment & Plan (1) CVA (cerebral vascular accident): (2) Chest pain: (3) Implantable cardioverter-defibrillator (ICD) generator end of life: (4) Cardiac arrest: Plan Stress test ordered by the hospitalist group for this morning. I will review the study when it is complete but unless it is markedly abnormal I think conservative management and continued medical therapy is indicated for this patient. History of Present Illness Attending Physician: José Luis Floyd MD History of Present Illness This is a 57-year-old female with a previous history as outlined below. Frankly, it would appear that she has not been seen in our clinic since 2016 but has managed to have follow-up with device clinic. A number years ago she had a cardiac arrest and I am uncertain as to her cognitive abilities. She needs to have a ride from her sister who is not always available to come to her appointments. In any case, she has been stable for many years and then last night she had some chest pain while sitting in her bed. She became concerned because the did not her the pain she had just prior to her cardiac arrest in . She tried to take sublingual nitroglycerin but the bottle was old and would not work. After about 10 minutes the pain subsided on its own. It was not associated with shortness of breath or diaphoresis. She does not recall any heart palpitations or tachycardia. Of note is that in 2013 she had a cardiac catheterization that showed normal coronaries. Her cardiac markers after admission are very minimally elevated without a significant delta. Echocardiogram interpreted by the [facility] group suggests wall motion abnormalities of the inferior myocardium with an estimated left ventricular ejection fraction around 45%. EKG shows an atrial paced rhythm. Past medical history: 1.Chronic atypical chest pain suggestive of noncardiac etiology (anxiety). 2.Abnormal EKG and TTE suggestive of inferior ischemia. 3.Nonsustained ventricular tachycardia and ventricular fibrillation, as previously described. 4.History of sudden cardiac in July 2009, status post pacer-defibrillator implantation 5.Chart history of long QT syndrome. 6.Status post May 2013 catheterization with normal coronaries. 7.Normal LV systolic function 8.Mild valvular heart disease 9.Chart history of TIA/CVA 10.Chronic tobacco abuse 11.Chronic diarrhea attributed to celiac disease, improved through dietary changes. 12.Chronic renal insufficiency 13.Hyperlipidemia 14.Chart history of hypertension Allergies Allergy/AdvReac Type Severity Reaction Status Date / Time meloxicam Allergy Severe ANAPHYLAXIS Verified 11/12/19 15:28 vancomycin Allergy Unknown RASH Verified 11/12/19 15:28 ibuprofen Allergy Unknown Verified 03/23/22 14:56 naproxen Allergy Unknown Verified 03/23/22 14:56 Quinolones AdvReac Unknown unknown Verified 11/12/19 15:28 MUSCLE RELAXANT Allergy Severe ANAPHYLAXIS Uncoded 11/12/19 15:28 Home Medications Medication Instructions Recorded Confirmed Type atorvastatin 40 mg tablet 40 mg PO DAILY 05/12/18 11/12/19 History calcium carbonate 600 mg calcium 600 mg PO TID 05/12/18 11/12/19 History (1,500 mg) tablet potassium chloride 10 mEq 10 meq PO DAILY 05/12/18 11/12/19 History tablet,extended release cetirizine 10 mg tablet (Zyrtec) 10 mg PO DAILY #30 tabs 05/22/18 11/12/19 Rx omeprazole 20 mg tablet,delayed 20 mg PO BID #60 tabs 05/22/18 11/12/19 Rx release apixaban 5 mg tablet (Eliquis) 5 mg PO BID 09/30/19 11/12/19 History bupropion HCl 300 mg 24 hr tablet, 300 mg PO QAM 09/30/19 11/12/19 History extended release (Wellbutrin XL) clonazepam 1 mg tablet 1 mg PO TID 09/30/19 11/12/19 History clopidogrel 75 mg tablet (Plavix) 75 mg PO DAILY 09/30/19 11/12/19 History furosemide 20 mg tablet 20 mg PO DAILY PRN Fluid Retention 09/30/19 11/12/19 History gabapentin 300 mg capsule 300 mg PO DAILY 09/30/19 11/12/19 History melatonin PO 09/30/19 11/12/19 History metoprolol succinate 50 mg 25 mg PO BID 09/30/19 11/12/19 History tablet,extended release 24 hr pantoprazole 20 mg tablet,delayed 20 mg PO BID 09/30/19 11/12/19 History release topiramate 200 mg tablet 200 mg PO BID 30 days #60 tabs 05/17/20 Rx Patient History Medical History AICD discharge (04/14/13) Anxiety Cardiac arrest "apparently secondary to ventricular arrhythmia 2009" Cardiomyopathy CKD (chronic kidney disease), stage III Depression Dyslipidemia Fracture, metacarpal Fracture, metacarpal Headache Myoclonus Briefly in 2016 Nonepileptic episode 2013, seen by Dr. Marie Pain, dental QT prolongation Stroke Tobacco use Surgical History Status post cholecystectomy Status post hysterectomy Status post implantation of automatic cardioverter/defibrillator (AICD) Family History Other No pertinent family history in first degree relatives Social History Smoking Status: Never smoker Tobacco Type: Cigarettes Second Hand Exposure: Yes; Hx Alcohol Use: No Hx Substance Use: No Preferred Language: Uzbek Communication Ability: Effective Inventory Technician Required: No Beliefs That Will Affect Care: None Current Living Situation: Alone Feels Safe at Home: Yes Assistive Devices: Glasses and Walker Review of Systems Review of Systems: Review of Systems: See HPI for pertinent positives. All other 10 point review of systems are negative. Physical Exam Physical Exam: General: no acute distress and stated age Head: normocephalic, no masses, lesions, tenderness or abnormalities Eyes: conjunctiva are pink and non-injected, sclera clear Neck: supple, no adenopathy, no bruits, normal jugular venous pulse, no hepatojugular reflux Chest: normal shape and normal respiratory effort Lungs: clear to auscultation and percussion Cardiac Exam: - regular rate & rhythm, no murmurs gallops or rubs - normal S1, normal S2 Pulses: 2(+) throughout Abdomen: abdomen soft, non-tender, no abnormal masses and no hepatosplenomegaly Musculoskeletal: no gait disturbance, no joint inflammation, no deforming arthritis Extremities: no edema and no cyanosis Neuro: grossly normal exam Results & Data ([facility]) Vital Signs (Past 12 Hours) Vital Signs Temp Pulse Pulse Resp BP Pulse Ox O2 Del Method 03/23/22 08:01 36.9 C 63 19 104/70 94 Room Air 03/23/22 07:19 60 03/23/22 04:00 36.8 C 60 18 116/74 98 Room Air 03/22/22 22:11 60 03/22/22 23:42 Room Air 03/22/22 23:36 36.8 C 68 18 97/61 L 95 Room Air Laboratory Results Laboratory Results - last 24 hr 03/22/22 03/22/22 03/22/22 10:47 10:47 14:03 WBC 6.98 RBC 4.23 Hgb 12.7 Hct 38.7 MCV 91.5 MCH 30.0 MCHC 32.8 RDW Std Deviation 42.7 RDW Coeff of Blair 12.9 Plt Count 188 MPV 10.0 Immature Gran % (Auto) 0.1 Neut % (Auto) 61.1 Lymph % (Auto) 29.5 Griggs % (Auto) 6.3 Eos % (Auto) 1.9 Baso % (Auto) 1.1 Neut # (Auto) 4.26 Lymph # (Auto) 2.06 Griggs # (Auto) 0.44 Eos # (Auto) 0.13 Baso # (Auto) 0.08 Immature Gran # (Auto) 0.01 Sodium 142 Potassium 4.0 Chloride 109 H Carbon Dioxide 27 Anion Gap 6 BUN 19 Creatinine 0.93 Est Cr Clr Drug Dosing 59.4 Est GFR ( Amer) 80.2 Est GFR (Non-Af Amer) 69.2 BUN/Creatinine Ratio 20.4 H Glucose 94 Calcium 9.3 Magnesium Total Bilirubin 0.3 AST 12 L ALT 8 Alkaline Phosphatase 69 Troponin I High Sens 15.1 H 20.4 H Total Protein 6.9 Albumin 4.1 Globulin 2.8 Albumin/Globulin Ratio 1.5 Lipase 31 SARS-CoV-2, RNA, NAAT 03/22/22 03/23/22 03/23/22 Unknown 06:09 06:09 WBC 6.52 RBC 4.02 Hgb 12.1 Hct 36.5 MCV 90.8 MCH 30.1 MCHC 33.2 RDW Std Deviation 42.2 RDW Coeff of Blair 12.7 Plt Count 170 MPV 9.9 Immature Gran % (Auto) Neut % (Auto) Lymph % (Auto) Griggs % (Auto) Eos % (Auto) Baso % (Auto) Neut # (Auto) Lymph # (Auto) Griggs # (Auto) Eos # (Auto) Baso # (Auto) Immature Gran # (Auto) Sodium 142 Potassium 3.5 Chloride 112 H Carbon Dioxide 24 Anion Gap 6 BUN 26 H Creatinine 1.08 Est Cr Clr Drug Dosing 49.9 Est GFR ( Amer) 66.9 Est GFR (Non-Af Amer) 57.7 BUN/Creatinine Ratio 24.1 H Glucose 91 Calcium 8.3 L Magnesium 1.9 Total Bilirubin AST ALT Alkaline Phosphatase Troponin I High Sens 13.3 D Total Protein Albumin Globulin Albumin/Globulin Ratio Lipase SARS-CoV-2, RNA, NAAT NEGATIVE Medications Administered Current Inpatient Medications Acetaminophen (Acetaminophen 325 Mg Tab) 650 mg PO Q4H PRN PRN Reason: pain/fever Stop: 04/21/22 16:50 Apixaban (Apixaban 5 Mg Tablet) 5 mg PO BID IVÁN Stop: 04/21/22 20:59 Last Admin: 03/23/22 09:19 Dose: 5 mg Atorvastatin Calcium (Atorvastatin 40 Mg Tab) 40 mg PO DAILY IVÁN Stop: 04/22/22 08:59 Last Admin: 03/23/22 09:19 Dose: 40 mg Clonazepam (Clonazepam 1 Mg Tab) 1 mg PO TID IVÁN Stop: 04/21/22 20:59 Last Admin: 03/23/22 09:22 Dose: 1 mg Clopidogrel Bisulfate (Clopidogrel Bisulfate 75 Mg Tab) 75 mg PO DAILY IVÁN Stop: 04/22/22 08:59 Last Admin: 03/23/22 09:19 Dose: 75 mg Gabapentin (Gabapentin 300 Mg Cap) 300 mg PO QPM IVÁN Stop: 04/21/22 22:44 Last Admin: 03/22/22 22:45 Dose: 300 mg Melatonin (Melatonin 3 Mg Tab) 6 mg PO HS IVÁN Stop: 04/21/22 20:59 Last Admin: 03/22/22 20:42 Dose: 6 mg Metoprolol Succinate (Metoprolol Succ 25mg Ext Rel Tab) 25 mg PO BID IVÁN Stop: 04/21/22 20:59 Last Admin: 03/23/22 09:19 Dose: 25 mg Ondansetron HCl (Ondansetron Inj 2 Mg/Ml 2 Ml Vial) 4 mg IV Q4H PRN PRN Reason: Nausea Stop: 04/21/22 16:50 Pantoprazole Sodium (Pantoprazole 40 Mg Tab) 20 mg PO BID IVÁN Stop: 04/21/22 20:59 Last Admin: 03/23/22 09:19 Dose: 20 mg Paroxetine HCl (Paroxetine Hcl 10 Mg Tab) 10 mg PO QPM IVÁN Stop: 04/22/22 20:59 Topiramate (Topiramate 100 Mg Tab) 200 mg PO BID IVÁN Stop: 04/21/22 20:59 Last Admin: 03/23/22 09:19 Dose: 200 mg
[2022-03-23] MEDS ORDERED: REGADENOSON 0.4 MG/5 ML SYR IV ONE (10:59)
--- NOTE | 2022-03-23 13:31 | Myocardial Perfusion Study ---
Date of Service March 23, 2022 Myocardial Perfusion Study k Myocardial Perfusion Study Report The patient received 10.4 mCi of intravenous tech 99M sestamibi. 1 hour after the injection the patient underwent SPECT imaging. The patient then underwent a stress [facility] and received an additional 32.3 mCi of tech 99M sestamibi followed by a repeat SPECT study. Resting EKG revealed a sinus rhythm with nonspecific ST and T wave changes. During and following stress there were no EKG changes that would suggest ischemia and no significant arrhythmias. When comparing the rest to stress sestamibi scans there is moderate decreased perfusion of the inferior and inferior lateral myocardium on the stress images that is less evident on the resting images. These findings are consistent with a nontransmural infarct with roberta-infarct ischemia. Gated analysis shows hypokinesis of the inferior and inferior lateral myocardium with an estimated left ventricular ejection fraction of 61%. Summary: Overall this pharmacologic nuclear stress test reveals a nontransmural infarct in the inferior and inferior lateral myocardium with mild to moderate roberta- infarct ischemia. These findings are most consistent with the distribution of the right coronary or left circumflex arteries.
--- NOTE | 2022-03-23 13:56 | Hospitalist Progress Note ---
Date of Service March 23, 2022 Assessment & Plan (1) Chest pain: Plan: Troponin series is not trending. Her nuclear stress test however was abnormal with evidence of inferior wall ischemia. [facility] cardiology consultation appreciated. Probable left heart catheterization tomorrow, March 24. N.p.o. after midnight tonight. Continue current medications (2) Cardiac arrest: Plan: due to Vfib arrest in 2009. ICD last changed out by [facility] SUN in 2018. Telemetry (3) CVA (cerebral vascular accident): Plan: Occurred in 12/2018. Had tPA and then went to [facility] because there was some question of need for interventional neurology procedure, but in the end, no intervention was done per report. Continue Plavix (4) Dyslipidemia: Plan: Continue statin. Low-fat diet (5) Anxiety: Plan: Treated with bupropion, clonazepam (6) DVT prophylaxis: Plan: Currently on Eliquis FULL CODE Plan Anticipate eventual discharge to home Admission and Anticipated Discharge Date Admission Date: March 22, 2022 Subjective Alert and oriented at the time of my rounds earlier this morning. I spoke with [facility] cardiology. Her nuclear stress test was abnormal with evidence of inferior wall ischemia. She probably will have a left heart catheterization tomorrow. She choked on a piece of chicken at lunchtime which subsequently luly ared. She will be made n.p.o. after midnight tonight. Troponin series is not trending. Review of Systems Review of Systems: Constitutional-no fever or chills ENT-no blurred vision, no double vision, no epistaxis, no sore throat Respiratory-no cough, no wheezing, no shortness of breath Cardiac-no palpitations, no chest pain, no syncope GI-no nausea, vomiting, diarrhea, melena, hematochezia -no urinary retention, no urinary incontinence, no dysuria, no hematuria Musculoskeletal-no joint pain, no muscle tenderness Skin-no bruising, no rashes, no pruritus Neuro-no isolated weakness, no paresthesia, no weakness Psych-no depression, no anxiety Physical Exam Physical Exam: General-alert and oriented x3, no fevers, no chills HEENT-head atraumatic and normocephalic, pupils equal and reactive to light, extraocular muscles intact Neck-no lymphadenopathy or thyromegaly, trachea midline Chest-clear to auscultation percussion. No rales wheezing or rhonchi Cardiac-regular rate and rhythm, normal S1 and S2 Abdomen-normal bowel sounds, nontender, no hepatosplenomegaly Extremities-no cyanosis, clubbing, or edema Neuro-cranial nerves II through XII intact, motor and sensory function within normal limits, strength symmetrical , no focal deficits Psych-normal affect, normal mood Results & Data Results & Data ([facility]) Vital Signs (Past 12 Hours) Vital Signs Temp Pulse Pulse Resp BP Pulse Ox O2 Del Method 03/23/22 08:01 36.9 C 63 19 104/70 94 Room Air 03/23/22 07:19 60 03/23/22 04:00 36.8 C 60 18 116/74 98 Room Air Laboratory Results 03/23/22 06:09 03/23/22 06:09 PG Care Time/CCT Total # of Minutes Spent Total Time Spent with Patient: Total time spent is greater than 50% in coordination of care (as documented) at patient's floor/unit and/or counseling patient: Coding Level of Care Code 88635 Subseq Hosp Care Lvl 3 Diagnoses Chest pain R07.9 Cardiac arrest I46.9 CVA (cerebral vascular accident) I63.9 Dyslipidemia E78.5 Anxiety F41.9 DVT prophylaxis Z29.9
[2022-03-23] MEDS ORDERED: PARoxetine HCL 10 MG TAB PO SCH (21:00)
[2022-03-23] MEDS: GABAPENTIN 300 MG CAP PO SCH (21:47)
[2022-03-23] MEDS: MELATONIN 3 MG TAB PO SCH (21:48)
--- NOTE | 2022-03-24 05:54 | Electrocardiogram Report ---
Test Reason : Blood Pressure : / mmHG Vent. Rate : 062 BPM Atrial Rate : 062 BPM P-R Int : 184 ms QRS Dur : 106 ms QT Int : 430 ms P-R-T Axes : 063 -32 -42 degrees QTc Int : 436 ms Normal sinus rhythm Left axis deviation Anterolateral infarct (cited on or before 12-MAY-2018) T wave abnormality, consider inferior ischemia Abnormal ECG When compared with ECG of 05-JAN-2019 17:59, QRS axis Shifted left Inverted T waves have replaced nonspecific T wave abnormality in Inferior leads Confirmed by Mahendra Welsh ([id number]) on 03/24/2022 5:54:32 AM Referred By: Confirmed By:Mahendra Welsh
--- NOTE | 2022-03-24 06:00 | Electrocardiogram Report ---
Test Reason : Blood Pressure : / mmHG Vent. Rate : 060 BPM Atrial Rate : 250 BPM P-R Int : 232 ms QRS Dur : 094 ms QT Int : 436 ms P-R-T Axes : 000 -35 -37 degrees QTc Int : 436 ms Poor data quality, interpretation may be adversely affected Atrial-paced rhythm with prolonged AV conduction Left axis deviation Low voltage QRS Anterior infarct Possible Inferior infarct Abnormal ECG When compared with ECG of 22-MAR-2022 10:20, Electronic atrial pacemaker has replaced Sinus rhythm Questionable change in initial forces of Septal leads Confirmed by Mahendra Welsh ([id number] on 03/24/2022 6:00:30 AM Referred By: REFERRED SELF Confirmed By:Mahendra Welsh
[2022-03-24] MEDS ORDERED: LIDOCAINE 1% LOCAL 20 ML VIAL ONE (07:00)
--- NOTE | 2022-03-24 08:55 | Cardiology Progress Note ---
Date of Service March 24, 2022 Assessment & Plan (1) CVA (cerebral vascular accident): (2) Chest pain: (3) Implantable cardioverter-defibrillator (ICD) generator end of life: (4) Cardiac arrest: Plan As previously outlined. The patient had a choking spell when I was discussing her stress test and providing the option of a cardiac catheterization. Later on, nursing informed me that she did not want to have a heart catheterization and wanted to go home. I left her on the schedule and made her n.p.o. with the idea of discussing with her this morning and perhaps she would proceed with a heart cath. As previously mentioned, the patient has often missed her follow-up appointments or canceled them. We have not seen her in a clinic visit since 2019. She occasionally comes in for device check. Unfortunately, she has had fragmented healthcare. The patient has a history of a previous CVA and what I can gather from the record she may have had a provoked DVT during that event for which she was placed on Eliquis which should have been discontinued after several months of treatment. Her last office visit with us, she was not on Eliquis. Reviewing the [place] records and her last neurology visit, it was questionable whether or not she was on Eliquis. I believe she was not, but was started on it by the medical service this admission. In any case, the patient decided to stay and have the heart catheterization late last night. Unfortunately, she received a dose of Eliquis last night. I therefore cannot complete the cardiac catheterization this morning and because of the holiday and the weekend the procedure would not be completed till Sunday. The patient expr esses that she wants to go home for [place]. Her stress test was in my opinion was abnormal but not high risk. She had no significant elevation or delta in her cardiac troponins. She has had no additional chest pain and I think it would be okay if she wanted to go home and schedule the heart cath electively next week. I would keep her on aspirin and Plavix. Make sure she has a fresh subscription of sublingual nitroglycerin. Admission and Anticipated Discharge Date Admission Date: March 22, 2022 Subjective The patient has had no chest pain since admission. Her night was uneventful except late in the afternoon when I went to speak with her regarding her stress test and proceeding to heart cath she was eating chicken and began to choke on the chicken. She did not aspirate but it was stuck in her throat. It took a while for her to recover. Later on, the nurses texted me and indicated that she wanted to go home and not have a heart cath completed. Review of Systems Review of Systems: Review of Systems: See HPI for pertinent positives. All other 10 point review of systems are negative. Physical Exam Physical Exam: General: no acute distress and stated age Head: normocephalic, no masses, lesions, tenderness or abnormalities Eyes: conjunctiva are pink and non-injected, sclera clear Neck: supple, no adenopathy, no bruits, normal jugular venous pulse, no hepatojugular reflux Chest: normal shape and normal respiratory effort Lungs: clear to auscultation and percussion Cardiac Exam: - regular rate & rhythm, no murmurs gallops or rubs - normal S1, normal S2 Pulses: 2(+) throughout Abdomen: abdomen soft, non-tender, no abnormal masses and no hepatosplenomegaly Musculoskeletal: no gait disturbance, no joint inflammation, no deforming arthritis Extremities: no edema and no cyanosis Neuro: grossly normal exam Results & Data ([facility]) Vital Signs (Past 12 Hours) Vital Signs Temp Pulse Pulse Resp BP Pulse Ox O2 Del Method 03/24/22 07:55 71 18 110/57 L 98 Room Air 03/24/22 07:39 63 03/24/22 03:36 36.6 C 67 18 99/60 L 96 Room Air 03/24/22 02:42 65 03/23/22 23:39 36.5 C 60 18 108/70 95 Room Air 03/23/22 20:46 37.1 C 60 18 99/62 L 96 Room Air Medications Administered Current Inpatient Medications Acetaminophen (Acetaminophen 325 Mg Tab) 650 mg PO Q4H PRN PRN Reason: pain/fever Stop: 04/21/22 16:50 Atorvastatin Calcium (Atorvastatin 40 Mg Tab) 40 mg PO DAILY [facility] Stop: 04/22/22 08:59 Last Admin: 03/23/22 09:19 Dose: 40 mg Clonazepam (Clonazepam 1 Mg Tab) 1 mg PO TID IVÁN Stop: 04/21/22 20:59 Last Admin: 03/23/22 21:47 Dose: 1 mg Clopidogrel Bisulfate (Clopidogrel Bisulfate 75 Mg Tab) 75 mg PO DAILY [facility] Stop: 04/22/22 08:59 Last Admin: 03/23/22 09:19 Dose: 75 mg Gabapentin (Gabapentin 300 Mg Cap) 300 mg PO QPM IVÁN Stop: 04/21/22 22:44 Last Admin: 03/23/22 21:47 Dose: 300 mg Melatonin (Melatonin 3 Mg Tab) 6 mg PO HS IVÁN Stop: 04/21/22 20:59 Last Admin: 03/23/22 21:48 Dose: 6 mg Metoprolol Succinate (Metoprolol Succ 25mg Ext Rel Tab) 25 mg PO BID IVÁN Stop: 04/21/22 20:59 Last Admin: 03/23/22 21:53 Dose: Not Given Ondansetron HCl (Ondansetron Inj 2 Mg/Ml 2 Ml Vial) 4 mg IV Q4H PRN PRN Reason: Nausea Stop: 04/21/22 16:50 Pantoprazole Sodium (Pantoprazole 40 Mg Tab) 40 mg PO BID IVÁN Stop: 04/21/22 20:59 Last Admin: 03/23/22 21:49 Dose: 40 mg Paroxetine HCl (Paroxetine Hcl 10 Mg Tab) 10 mg PO QPM IVÁN Stop: 04/22/22 20:59 Last Admin: 03/23/22 21:49 Dose: 10 mg Topiramate (Topiramate 100 Mg Tab) 200 mg PO BID IVÁN Stop: 04/21/22 20:59 Last Admin: 03/23/22 21:48 Dose: 200 mg
[2022-03-24] MEDS: ATORVASTATIN 40 MG TAB PO SCH (09:40)
[2022-03-24] MEDS: TOPIRAMATE 100 MG TAB PO SCH (09:40)
[2022-03-24] MEDS: METOPROLOL SUCC 25MG EXT REL TAB PO SCH (09:40)
[2022-03-24] MEDS: PANTOprazole 40 MG TAB PO SCH (09:40)
[2022-03-24] MEDS: CLOPIDOGREL BISULFATE 75 MG TAB PO SCH (09:40)
[2022-03-24] MEDS: clonazePAM 1 MG TAB PO SCH (09:42)
[2022-03-24] MEDS ORDERED: ASPIRIN 81 MG ECTAB PO SCH (10:15)
--- NOTE | 2022-03-24 11:28 | Discharge Summary ---
Date of Service March 24, 2022 Admission HPI Per Admitting Provider 57-year-old female with a history of stroke, V. fib arrest in 2009 who presents with an episode of chest pain. The patient reports that the chest pain occurred around 930 this morning. She reports she was on the phone with her 2 daughters at the time of the chest pain. The chest pain lasted for approximately 20 minutes and resolved without any intervention by the patient. There is no radiation of the chest pain, and the patient denies any associated symptoms such as shortness of breath, palpitations, lightheadedness, nausea/vomiting, upset stomach, or anything else. The patient reports that this has never happened to her before. She reports that she does not get out very often, but has never had chest pain with exertion. The patient reports that the chest pain resolved by the time she got to the [facility], and has not recurred since. Patient initially willing to be admitted to the hospital, then decided she would prefer following up with her PCP as outpatient, then finally decided that she would remain in the hospital for a stress test. Principal Diagnosis Chest pain Discharge Exam General-alert and oriented x3, no fevers, no chills HEENT-head atraumatic and normocephalic, pupils equal and reactive to light, extraocular muscles intact Neck-no lymphadenopathy or thyromegaly, trachea midline Chest-clear to auscultation percussion. No rales wheezing or rhonchi Cardiac-regular rate and rhythm, normal S1 and S2 Abdomen-normal bowel sounds, nontender, no hepatosplenomegaly Extremities-no cyanosis, clubbing, or edema Neuro-cranial nerves II through XII intact, motor and sensory function within normal limits, strength symmetrical , no focal deficits Psych-normal affect, normal mood Discharge Data Allergies Allergy/AdvReac Type Severity Reaction Status Date / Time meloxicam Allergy Severe ANAPHYLAXIS Verified 11/12/19 15:28 vancomycin Allergy Unknown RASH Verified 11/12/19 15:28 ibuprofen Allergy Unknown Verified 03/23/22 14:56 naproxen Allergy Unknown Verified 03/23/22 14:56 Quinolones AdvReac Unknown unknown Verified 11/12/19 15:28 MUSCLE RELAXANT Allergy Severe ANAPHYLAXIS Uncoded 11/12/19 15:28 Consultations 03/22/22 14:14 ED Decision to Admit Stat 03/23/22 08:23 Consult Cardiology Routine Procedures Performed Operation Date: 03/24/22 08:00 <No data on this case meets the specified criteria> Ordered Studies 03/24/22 06:59 CL Cath Imgs for PACS use only Routine Hospital Course (1) Chest pain: Troponin series is not trending. Her nuclear stress test however was abnormal with evidence of inferior wall ischemia. [facility] consultation appreciated. She will have to be off the Eliquis before the heart catheterization can proceed. This will be done as an outpatient probably next week. She will remain on aspirin and Plavix. Eliquis has been discontinued. She will use sublingual nitroglycerin spray instead of tablets at her request. Continue current medications (2) Cardiac arrest: due to Vfib arrest in 2009. ICD last changed out by [facility] in 2018. Telemetry (3) CVA (cerebral vascular accident): Occurred in 12/2018. Had tPA and then went to [facility] because there was some question of need for interventional neurology procedure, but in the end, no intervention was done per report. Continue Plavix (4) Dyslipidemia: Continue statin. Low-fat diet (5) Anxiety: Treated with bupropion, clonazepam (6) DVT prophylaxis: Currently on Eliquis FULL CODE Plan Discharge to home today, March 24. Follow-up with cardiology for outpatient heart cath next week Total Time Total Time Spent Total Time Spent (In Minutes): 35 minutes Discharge Plan Discharge Items Patient Disposition: Home - Self-Care Reason For Visit: CHEST PAIN, NEW TWIS IN V4-V6 Discharge Diagnosis: Chest pain of possible cardiac etiology Activity: As commented below Activity Comment: Avoid overexertion Non-emergency contact: Primary Care Provider and Agriculture Technician Call non-emergency contact if: you have any medication questions and your symptoms worsen Follow-up/Referrals: Sanjay Raymond DO [Primary Care Provider] - Diet: Heart Healthy Addtl Attending Provider Instructions: Stop Eliquis. Continue all other medications including aspirin and Plavix Pending Studies at Discharge: No Stand-Alone Forms: My [employer], Smoking Cessation Medications and DC Order Prescriptions: New nitroglycerin 400 mcg/spray spray,non-aerosol 1 spray sublingual Q5M PRN (Reason: chest pain) Qty: 4.9 0RF aspirin 81 mg Tablet,Delayed Release (Dr/Ec) 81 mg PO QAM Qty: 30 0RF Continued topiramate 200 mg tablet 200 mg PO BID 30 Days Qty: 60 5RF Rx Instructions: take 100 mg in the morning, and 200 mg in the evening for 1 week, then 200 mg twice daily thereafter. clonazepam 1 mg tablet 1 mg PO TID clopidogrel [Plavix] 75 mg tablet 75 mg PO DAILY gabapentin 300 mg capsule 300 mg PO DAILY melatonin PO pantoprazole 20 mg tablet,delayed release (DR/EC) 20 mg PO BID bupropion HCl [Wellbutrin XL] 300 mg tablet extended release 24 hr 300 mg PO QAM atorvastatin 40 mg tablet 40 mg PO DAILY potassium chloride 10 mEq Tablet Extended Release 10 meq PO DAILY calcium carbonate 600 mg calcium (1,500 mg) tablet 600 mg PO TID furosemide 20 mg tablet 20 mg PO DAILY PRN (Reason: Fluid Retention) metoprolol succinate 50 mg tablet extended release 24 hr 25 mg PO BID cetirizine [Zyrtec] 10 mg Tablet 10 mg PO DAILY Qty: 30 0RF omeprazole 20 mg Tablet,Delayed Release (Dr/Ec) 20 mg PO BID Qty: 60 0RF Discontinued Eliquis 5 mg tablet 5 mg PO BID Discharge Orders: Discharge Order (Routine); Ordered 03/24/22 Ordered By: José Luis Floyd Admission Data Admit Date/Time: 03/22/22 13:33 Attending Provider: José Luis Floyd Admit Provider: Babak Cassidy Primary Care Provider: Sanjay Raymond Other Providers: Babak Cassidy ; Earl Zazueta ; Sanjay Mays ; Alcides Brenner ; Masr Law ; DarioEvelio cedeno ; Sundar Rome ; Katharine Cardoza ; Kerrie Parra ; Ellie Butcher ; Ernie Moreno Other Interventions: Discharge Summary Assessment (RN) Last Done: 03/24/22 11:23 Coding Level of Care Code D/C DAY MANAGEMENT >30 MINS Diagnoses Chest pain R07.9 Cardiac arrest I46.9 CVA (cerebral vascular accident) I63.9 Dyslipidemia E78.5 Anxiety F41.9 DVT prophylaxis Z29.9
== END 2022-03-24 12:25 | disposition home health service (06) ==
LOC: ED 10:15 → 2W 10:15 → SUATTDRO 13:33 → 2W 16:21

== ENCOUNTER 2025-03-23 21:23 | Inpatient (IN) ==
--- NOTE | 2025-03-23 21:34 | Emergency Department Note ---
Impression & Plan Acute exacerbation of chronic obstructive pulmonary disease, Acute bronchitis, Acute respiratory distress ED Provider Note NAME: ILIANA DORADO AGE: 60 SEX: F : 1965 ARRIVES VIA: Ambulance INFORMANT: Patient, EMS ED PROVIDER(S): Tong Rust DO CHIEF COMPLAINT: Shortness of breath HPI: The patient is a 60-year-old female who presented to the emergency department for an evaluation of shortness of breath. The patient's been experiencing shortness of breath symptoms over the course the last several days. She states that she has had some sick exposures. She has noticed a productive cough which initially was brown. She has noticed some blood in the sputum now. She denies having any fever. She has had some lower extremity swelling as well. She denies having any chest pain. She did come in via ambulance. She appeared to be in respiratory distress and was placed on BiPAP. She received 40 mg of Solu-Medrol as well as 2 DuoNeb treatments prior to arrival. ROS: See above HPI for pertinent positives & negatives. A total of 10 systems reviewed and were otherwise negative. PAST MEDICAL HISTORY: See Below PAST SURGICAL HISTORY: See Below FAMILY HISTORY: See Below SOCIAL HISTORY: See Below HOME MEDICATIONS: See Below ALLERGIES: See Below VITALS: See Below PHYSICAL EXAMINATION: GENERAL: The patient is awake and alert. She appears anxious. EYES: The conjunctivae are clear. The pupils are round and reactive. EARS, NOSE, MOUTH AND THROAT: The nose is without any evidence of any deformity. NECK: The neck is nontender and supple. RESPIRATORY: Diminished breath sounds are noted throughout with rales and scattered rhonchi. There were diminished specifically in the right lung field. CARDIOVASCULAR: Tachycardic and regular heart sounds were noted to auscultation. No definite murmur was noted. GASTROINTESTINAL: The abdomen is soft. Abdomen is nontender. MUSCULOSKELETAL/EXTREMITIES: There is no evidence of gross deformity full range of motion is noted in the hips and shoulders. SKIN: There is no obvious evidence of any rash. There are no petechiae, pallor or cyanosis noted. NEUROLOGIC: Patient is awake alert and oriented x3 MEDICAL DECISION MAKING: The patient is a 60-year-old female who presented to the emergency department by ambulance. According to the prehospital personnel the patient was having significant respiratory distress on their initial evaluation. The patient was treated with 2 DuoNebs as well as IV steroids and was placed on BiPAP. Upon arrival to the emergency department the patient was significantly improved. She was able to speak in full sentences. She appeared to have continued tachypnea as well as abnormal lung sounds. She was further treated in the emergency department with IV fluids BiPAP and IV antibiotics. She was experiencing a productive cough. I discussed the patient's laboratory and radiographic studies with her. Given her ongoing symptoms I discussed her condition with the on-call [facility]. They have agreed to evaluate the patient in the emergency department for further management and disposition. Triage Nursing notes reviewed. Prior medical records reviewed Vital Signs: reviewed and remarkable for tachypnea and episodes of low blood pressure. Differential diagnosis: Reactive airway disease, pneumonia, pneumothorax, COPD, CHF, infections, cardiac ischemia, pulmonary embolism, musculoskeletal, gastrointestinal, as well as other pathologies. ER treatment provided: See below Diagnostics interpreted by me: ECG: EKG was obtained in the emergency department. My interpretation is sinus rhythm at 94 bpm. Frequent PVCs were noted. Left bundle branch block pattern was appreciated. This was compared to a tracing from March 22, 2022. Paced rhythm was noted on the previous EKG. Cardiac Monitoring: An order was placed for continuous cardiac monitoring. The monitor shows a rate of 82 bpm with sinus rhythm. Laboratory studies: As stated above and show below. Imaging studies: See below. Radiographic imaging was reviewed by myself Consultation(s): Dr. Hinton who is on-call for the [facility] group was notified about the patient. ED COURSE: Procedures: none Critical Care: I have personally spent greater than 40 minutes of critical care time in the direct management of this patient. This includes bedside care, interpretation of diagnostic studies, and testing, discussion with consultants, patient, and family members, and other required patient management activities. This 40 minutes is in excess of all separately billable procedures. Past Med/Surg History Problem List (Updated 03/24/25 @ 00:14 by Background Daemon) Acute respiratory distress (Acute) Acute bronchitis (Acute) Acute exacerbation of chronic obstructive pulmonary disease (Acute) Chest pain (Acute) Elevated troponin (Acute) Nonepileptic episode 2013, seen by Dr. Marie Headache Stroke Weakness of right leg AICD discharge (Acute 04/14/13) Cardiomyopathy (Chronic) CKD (chronic kidney disease), stage III (Chronic) Depression (Chronic) Tobacco use (Chronic) QT prolongation (Chronic) Fracture, metacarpal (Acute) Fracture, metacarpal (Acute) Pain, dental (Acute) Medical History CVA (cerebral vascular accident) Stroke Myoclonus Briefly in 2016 Implantable cardioverter-defibrillator (ICD) generator end of life Dyslipidemia Anxiety Cardiac arrest "apparently secondary to ventricular arrhythmia 2009" Family History Other No pertinent family history in first degree relatives Social History Smoking Status: Former smoker Tobacco Type: Cigarettes Second Hand Exposure: Yes; Do You Dip or Chew Tobacco: No; Hx Alcohol Use: No Hx Substance Use: No Preferred Language: [place] Communication Ability: Effective Lead Java Programmer Required: No Beliefs That Will Affect Care: None Current Living Situation: Alone Feels Safe at Home: Yes Assistive Devices: Glasses and Walker Allergies Allergies Allergy/AdvReac Type Severity Reaction Status Date / Time meloxicam Allergy Severe ANAPHYLAXIS Verified 11/12/19 15:28 vancomycin Allergy Unknown RASH Verified 11/12/19 15:28 ibuprofen Allergy Unknown Verified 03/23/22 14:56 naproxen Allergy Unknown Verified 03/23/22 14:56 Quinolones AdvReac Unknown unknown Verified 11/12/19 15:28 MUSCLE RELAXANT Allergy Severe ANAPHYLAXIS Uncoded 11/12/19 15:28 Home Meds Home Medications Medication Instructions Recorded Confirmed atorvastatin 40 mg tablet 40 mg PO DAILY 05/12/18 11/12/19 calcium carbonate 600 mg PO TID 05/12/18 11/12/19 potassium chloride 10 mEq 10 meq PO DAILY 05/12/18 11/12/19 tablet,extended release bupropion HCl 300 mg 24 hr tablet, 300 mg PO QAM 09/30/19 11/12/19 extended release (Wellbutrin XL) clonazepam 1 mg tablet 1 mg PO TID 09/30/19 11/12/19 clopidogrel 75 mg tablet (Plavix) 75 mg PO DAILY 09/30/19 11/12/19 furosemide 20 mg tablet 20 mg PO DAILY PRN Fluid Retention 09/30/19 11/12/19 gabapentin 300 mg capsule 300 mg PO DAILY 09/30/19 11/12/19 melatonin PO 09/30/19 11/12/19 metoprolol succinate 50 mg 25 mg PO BID 09/30/19 11/12/19 tablet,extended release 24 hr pantoprazole 20 mg tablet,delayed 20 mg PO BID 09/30/19 11/12/19 release Previous Rx's Medication Instructions Recorded cetirizine 10 mg tablet (Zyrtec) 10 mg PO DAILY #30 tabs 05/22/18 omeprazole 20 mg tablet,delayed 20 mg PO BID #60 tabs 05/22/18 release topiramate 200 mg tablet 200 mg PO BID 30 days #60 tabs 05/17/20 aspirin 81 mg tablet,delayed 81 mg PO QAM #30 tabs 03/24/22 release nitroglycerin 400 mcg/spray 1 spray sublingual Q5M PRN chest 03/24/22 translingual pain #4.9 grams Results & Data (ED) Vital Signs Vital Signs - 24 hr 03/23/25 21:35 03/23/25 21:37 03/23/25 21:44 Temperature 37.1 C Temperature Source Oral Pulse Rate 100 H 97 H Pulse Rate [Apical] Respiratory Rate 36 H Respiratory Effort / Characteristics Spontaneous Respiratory Depth Respiratory Pattern Blood Pressure 110/73 Blood Pressure [Left Arm] Blood Pressure Mean 85 Blood Pressure Mean [Left Arm] Pulse Oximetry 94 96 Oxygen Delivery Method Room Air Room Air BiPAP Fraction of Inspired Oxygen Sepsis Recent Fever Within 48 Hours No Sepsis New/Unexplained Change in Mental Status N/A Sepsis Action Taken by Nursing No Action Required 03/23/25 22:00 03/23/25 22:06 03/23/25 23:15 Temperature Temperature Source Pulse Rate 100 H Pulse Rate [Apical] 90 82 Respiratory Rate 20 27 H 20 Respiratory Effort / Characteristics Spontaneous Respiratory Depth Normal Respiratory Pattern Regular Blood Pressure Blood Pressure [Left Arm] 110/73 107/42 L Blood Pressure Mean Blood Pressure Mean [Left Arm] 85 63 Pulse Oximetry 96 98 94 Oxygen Delivery Method BiPAP BiPAP Fraction of Inspired Oxygen 30 Sepsis Recent Fever Within 48 Hours Sepsis New/Unexplained Change in Mental Status Sepsis Action Taken by [facility]dc Medications Current Medication List: was personally reviewed by me Laboratory Data Attestation: I reviewed the patient's lab results. 03/23/25 21:45 03/23/25 21:45 Lab Results 03/23/25 03/23/25 03/23/25 Range/Units 21:45 22:12 22:56 WBC 8.75 (4.8-10.8) K/ul RBC 4.34 (4.20-5.40) M/uL Hgb 12.5 (12.0-16.0) g/dL Hct 38.9 (37.0-47.0) % MCV 89.6 (80.0-100.0) fL MCH 28.8 (25.0-34.0) pg MCHC 32.1 (32.0-36.0) g/dL RDW Std Deviation 43.1 (36.4-46.3) fL RDW Coeff of Blair 13.2 (11.5-14.5) % Plt Count 219 (130-400) K/uL MPV 10.1 (9.4-12.4) fL Immature Gran % (Auto) 0.2 % Neut % (Auto) 69.5 % Lymph % (Auto) 19.9 % [place] % (Auto) 7.8 % Eos % (Auto) 1.7 % Baso % (Auto) 0.9 % Neut # (Auto) 6.08 (1.40-6.50) K/uL Lymph # (Auto) 1.74 (1.20-3.40) K/uL [place] # (Auto) 0.68 H (0.11-0.59) K/uL Eos # (Auto) 0.15 (0.00-0.50) K/uL Baso # (Auto) 0.08 (0.00-0.20) K/uL Immature Gran # (Auto) 0.02 (0.01-0.20) K/uL PT 11.4 (9.0-12.0) Seconds INR 1.1 (0.9-1.1) APTT 28 (21-31) Seconds PTT Ratio 1.0 VBG pH 7.30 L (7.36-7.41) VBG pCO2 40 (38-50) mmHg VBG pO2 34 mmHg VBG HCO3 20 mmol/L VBG O2 Saturation < 60.0 % VBG Base Excess -6.3 mEq/L Sodium 140 (136-145) mmol/L Potassium 3.7 (3.5-5.1) mmol/L Chloride 111 H (98-107) mmol/L Carbon Dioxide 20 L (21-32) mmol/L Anion Gap 9 (3-11) BUN 26 H (6-23) mg/dl Creatinine 1.10 (0.6-1.2) mg/dl Est Cr Clr Drug Dosing 58.6 ml/min eGFR 58.24 BUN/Creatinine Ratio 23.6 H (10-20) Glucose 119 H (70-99(Fasting)) mg/dl Lactate 1.3 (0.4-2.0) mmol/L Calcium 9.0 (8.6-10.3) mg/dl Magnesium 1.9 (1.7-2.4) mg/dl Total Bilirubin 0.6 (0.2-1.0) mg/dl Direct Bilirubin 0.1 (0-0.2) mg/dl AST 28 (13-39) U/L ALT 32 (7-52) U/L Alkaline Phosphatase 127 H (34-104) U/L Troponin I High Sens 28.9 H (0-14) pg/ml C-Reactive Protein 4.58 H (0-0.5) mg/dl Total Protein 7.2 (6.0-8.3) gm/dl Albumin 3.7 (3.4-5.0) gm/dl Procalcitonin 0.04 (0-0.5) ng/ml SARS-CoV-2 (PCR) NEGATIVE (Negative) Influenza Type A (PCR) Negative (Neg) Influenza Type B (PCR) Negative (Neg) RSV (RT-PCR) Negative (Neg) Administered Medications Discontinued Medications Ceftriaxone Sodium (Rocephin) 2,000 mg in 50 mls @ 100 mls/hr IV NOW STA Stop: 03/23/25 22:29 Last Admin: 03/23/25 22:20 Dose: 100 mls/hr Documented By: lou Sodium Chloride (Nss) 500 mls @ 999 mls/hr IV .Q31M ONE Stop: 03/23/25 22:30 Last Admin: 03/23/25 22:21 Dose: 999 mls/hr Documented By: lou Imaging Data Attestation: I personally reviewed and interpreted this imaging study as follows: My Impression: 1 view chest x-ray was obtained in the emergency department. My interpretation is questionable area in the right upper lobe that could be consistent with an early infiltrate, there is no free air, final report below. Radiologist's Impression: Chest X-Ray 03/23/25 21:30 Exam(s): XR CXR 1 VIEW EXAM: XR Chest, 1 View CLINICAL HISTORY: Reason for exam: Sepsis. TECHNIQUE: Frontal view of the chest. COMPARISON: Chest x-ray 11/27/2023 FINDINGS: Lungs: Pulmonary vascular congestion. Septal lines. No consolidation. Pleural space: No pleural effusion. No pneumothorax. Heart: Unremarkable. No cardiomegaly. Tubes, lines and devices: Multi lead pacemaker/ICD in place. IMPRESSION: Pulmonary edema. Electronically signed by: José Miguel Lyons MD 03/23/25 22:47 PM Discharge Plan Visit Data Chief Complaint: Respiratory Distress Stated Complaint: SEVERE RESP DISTRESS ED Provider: Tong Rust Discharge Problem: Acute exacerbation of chronic obstructive pulmonary disease, Acute bronchitis, Acute respiratory distress Patient Disposition: Being Evaluated by Hospitalist Condition: Fair
[2025-03-23 21:58] LABS: Hematocrit (blood only) 38.9 % (37.0-47.0); Hemoglobin 12.5 g/dL (12.0-16.0); Immature Granulocytes # (auto) 0.02 K/uL (0.01-0.20); Immature Granulocytes % (auto) 0.2 %; Mean Corpuscular Hemoglobin 28.8 pg (25.0-34.0); Mean Corpuscular Volume 89.6 fL (80.0-100.0); Platelet Count 219 K/uL (130-400); RDW Standard Deviation 43.1 fL (36.4-46.3); Red Blood Count 4.34 M/uL (4.20-5.40); White Blood Count 8.75 K/ul (4.8-10.8)
[2025-03-23 22:04] LABS: Base Excess VBG -6.3 mEq/L; HCO3 VBG 20 mmol/L; Oxygen Saturation VBG < 60.0 %; PCO2 VBG 40 mmHg (38-50); PO2 VBG 34 mmHg; pH VBG 7.30 (7.36-7.41)
[2025-03-23 22:15] LABS: Alanine Aminotransferase 32.0 U/L (7-52); Albumin Level 3.7 gm/dl (3.4-5.0); Alkaline Phosphatase 127.0 U/L (34-104); Anion Gap 9.0 (3-11); Bilirubin,Total 0.6 mg/dl (0.2-1.0); Blood Urea Nitrogen 26.0 mg/dl (6-23); Calcium 9.0 mg/dl (8.6-10.3); Carbon Dioxide 20.0 mmol/L (21-32); Chloride 111.0 mmol/L (98-107); Creatinine Clr Calc Pharmacy 58.6 ml/min; Glucose 119.0 mg/dl (70-99(Fasting)); Magnesium 1.9 mg/dl (1.7-2.4); Potassium 3.7 mmol/L (3.5-5.1); Sodium 140.0 mmol/L (136-145); Total Protein 7.2 gm/dl (6.0-8.3)
[2025-03-23] MEDS: cefTRIAXone SODIUM 2,000 MG/50 ML BAG IV STA (22:20)
[2025-03-23] MEDS: SODIUM CHLORIDE 0.9% 500 ML IV ONE (22:21)
[2025-03-23 22:32] LABS: INR 1.1 (0.9-1.1); Partial Thromboplastin Time 28 Seconds (21-31); Prothrombin Time 11.4 Seconds (9.0-12.0)
--- NOTE | 2025-03-23 22:47 | XRay Report ---
Exam(s): XR CXR 1 VIEW EXAM: XR Chest, 1 View CLINICAL HISTORY: Reason for exam: Sepsis. TECHNIQUE: Frontal view of the chest. COMPARISON: Chest x-ray 11/27/2023 FINDINGS: Lungs: Pulmonary vascular congestion. Septal lines. No consolidation. Pleural space: No pleural effusion. No pneumothorax. Heart: Unremarkable. No cardiomegaly. Tubes, lines and devices: Multi lead pacemaker/ICD in place. IMPRESSION: Pulmonary edema. Electronically signed by: José Miguel Lyons MD 03/23/25 22:47 PM
[2025-03-23 23:04] LABS: Influenza A virus by PCR Negative (Neg); Influenza B virus by PCR Negative (Neg); SARS CoV2 RNA(COVID-19) Ceph NEGATIVE (Negative)
--- NOTE | 2025-03-23 23:54 | History & Physical Report ---
Date of Service March 23, 2025 Assessment & Plan (1) Acute respiratory failure with hypoxia: (2) Acute exacerbation of chronic obstructive pulmonary disease: (3) Pneumonia: (4) Acute bronchitis: Plan The patient is a 60-year-old female with past medical history including COPD, h eadache, stroke, right leg weakness, AICD discharge 04-14-2013, cardiomyopathy, CKD stage III, depression, and tobacco use. She presents to the emergency department with concerns regarding shortness of breath for the past 3 to 4 days, has worsened today prior to arrival. EMS reportedly found her open mouth breathing, and unable to speak. She was given Solu-Medrol 40 mg IV and 2 DuoNeb treatments prior to arrival. Upon arrival, she was able to speak in short sentences. She was placed on BiPAP with improved oxygenation to O2 sat of 97%. She notes a cough productive of brown sputum. Significant laboratory abnormalities: Troponin 28.9, hemoglobin 12.5, potassium 3.7, CRP 4.58, glucose 119, magnesium 1.9. Chest x-ray with ICD, and right upper lobe infiltrate. From the ED she received the following: Ceftriaxone 2 g IV, and normal saline 500 mL bolus. She was then referred for evaluation for admission, admitted to hospitalist service. Acute respiratory failure with hypoxia/bronchopneumonia/COPD exacerbation- Continue BiPAP, with pulse ox: 92-94%. Taper as clinical status improves. COVID, flu, RSV testing negative Sputum Gram stain and culture MRSA swab Cefepime 2 g IV every 12 hours Azithromycin 500 mg IV every 24 hours Received Solu-Medrol 40 mg IV from EMS prior to arrival Solu-Medrol 40 mg IV every 8 hours Duonebs every 4 hours while awake and every 2 hours when necessary. Chest x-ray was read by radiology as pulmonary edema, but this is not consistent with picture and her clinical exam Elevated troponin/AICD presence/cardiomyopathy- Troponin 20.9 on admission with follow-up pending EKG with left bundle branch block, normal sinus rhythm, PVCs, with previous being atrial paced. Most recent echocardiogram from 01/20/2022 with ejection fraction 40-45% The patient will be admitted to telemetry for serial cardiac enzymes, serial EKG's, cardiac rhythm monitoring and a 2-D echocardiogram with Dopplers. Continue clopidogrel, aspirin, metoprolol succinate when verified RLE Boot- Reports that she gets dressing changed weekly by visiting nurses. No history of infection Boot will need to be removed. Asked the ED to remove for exam Wound Care consult Depression/anxiety- Continue bupropion, clonazepam, gabapentin, topiramate when verified GERD- Continue pantoprazole as 40 mg IV twice daily Hyperlipidemia- Continue atorvastatin when verified History of Present Illness Primary Care Provider: Davin Khan PA-C The patient is a 60-year-old female with past medical history including COPD, headache, stroke, right leg weakness, AICD discharge 04-14-2013, cardiomyopathy, CKD stage III, depression, and tobacco use. She presents to the emergency department with concerns regarding shortness of breath for the past 3 to 4 days, has worsened today prior to arrival. EMS reportedly found her open mouth breathing, and unable to speak. She was given Solu-Medrol 40 mg IV and 2 DuoNeb treatments prior to arrival. Upon arrival, she was able to speak in short sentences. She was placed on BiPAP with improved oxygenation to O2 sat of 97%. She notes a cough productive of brown sputum. Significant laboratory abnormalities: Troponin 28.9, hemoglobin 12.5, potassium 3.7, CRP 4.58, glucose 119, magnesium 1.9. Chest x-ray with ICD, and right upper lobe infiltrate. From the ED she received the following: Ceftriaxone 2 g IV, and normal saline 500 mL bolus. She was then referred for evaluation for admission, admitted to hospitalist service Allergies Allergy/AdvReac Type Severity Reaction Status Date / Time meloxicam Allergy Severe ANAPHYLAXIS Verified 11/12/19 15:28 vancomycin Allergy Unknown RASH Verified 11/12/19 15:28 ibuprofen Allergy Unknown Verified 03/23/22 14:56 naproxen Allergy Unknown Verified 03/23/22 14:56 Quinolones AdvReac Unknown unknown Verified 11/12/19 15:28 MUSCLE RELAXANT Allergy Severe ANAPHYLAXIS Uncoded 11/12/19 15:28 Home Medications Medication Instructions Recorded Confirmed Type atorvastatin 40 mg tablet 40 mg PO DAILY 05/12/18 11/12/19 History calcium carbonate 600 mg PO TID 05/12/18 11/12/19 History potassium chloride 10 mEq 10 meq PO DAILY 05/12/18 11/12/19 History tablet,extended release cetirizine 10 mg tablet (Zyrtec) 10 mg PO DAILY #30 tabs 05/22/18 11/12/19 Rx omeprazole 20 mg tablet,delayed 20 mg PO BID #60 tabs 05/22/18 11/12/19 Rx release bupropion HCl 300 mg 24 hr tablet, 300 mg PO QAM 09/30/19 11/12/19 History extended release (Wellbutrin XL) clonazepam 1 mg tablet 1 mg PO TID 09/30/19 11/12/19 History clopidogrel 75 mg tablet (Plavix) 75 mg PO DAILY 09/30/19 11/12/19 History furosemide 20 mg tablet 20 mg PO DAILY PRN Fluid Retention 09/30/19 11/12/19 History gabapentin 300 mg capsule 300 mg PO DAILY 09/30/19 11/12/19 History melatonin PO 09/30/19 11/12/19 History metoprolol succinate 50 mg 25 mg PO BID 09/30/19 11/12/19 History tablet,extended release 24 hr pantoprazole 20 mg tablet,delayed 20 mg PO BID 09/30/19 11/12/19 History release topiramate 200 mg tablet 200 mg PO BID 30 days #60 tabs 05/17/20 Rx aspirin 81 mg tablet,delayed 81 mg PO QAM #30 tabs 03/24/22 Rx release nitroglycerin 400 mcg/spray 1 spray sublingual Q5M PRN chest 03/24/22 Rx translingual pain #4.9 grams Past Med/Surg History Problem List (Updated 03/24/25 @ 03:43 by Norris Contreras MD) Pneumonia Acute respiratory failure with hypoxia Acute respiratory distress (Acute) Acute bronchitis (Acute) Acute exacerbation of chronic obstructive pulmonary disease (Acute) Chest pain (Acute) Elevated troponin (Acute) Nonepileptic episode 2013, seen by Dr. Marie Headache Stroke Weakness of right leg AICD discharge (Acute 04/14/13) Cardiomyopathy (Chronic) CKD (chronic kidney disease), stage III (Chronic) Depression (Chronic) Tobacco use (Chronic) QT prolongation (Chronic) Fracture, metacarpal (Acute) Fracture, metacarpal (Acute) Pain, dental (Acute) Medical History CVA (cerebral vascular accident) Stroke Myoclonus Briefly in 2016 Implantable cardioverter-defibrillator (ICD) generator end of life Dyslipidemia Anxiety Cardiac arrest "apparently secondary to ventricular arrhythmia 2009" Family History Other No pertinent family history in first degree relatives Social History Smoking Status: Former smoker Tobacco Type: Cigarettes Second Hand Exposure: Yes; Do You Dip or Chew Tobacco: No; Hx Alcohol Use: No Hx Substance Use: No Preferred Language: [place] Communication Ability: Effective [place] Required: No Beliefs That Will Affect Care: None Current Living Situation: Alone Feels Safe at Home: Yes Assistive Devices: Glasses and Walker Review of Systems Review of Systems: The patient denies chest pain, palpitations, lower extremity swelling, sore throat, fevers, chills, sweats, nausea, vomiting, diarrhea , constipation, abdominal pain, pelvic pain, blood in urine or stool, dysuria, urinary frequency or urgency, lightheadedness, dizziness, headache, loss of consciousness, rash, abnormal bruising or bleeding, focal weakness, numbness or tingling in arms or legs, generalized arthralgias or myalgias, back or neck pain, or night sweats. The review of systems is otherwise negative other than for that already noted above, and at least 10 systems have been reviewed. Physical Exam Physical Exam: The patient is awake, alert and oriented 3, well developed and well nourished, normocephalic and atraumatic, lying in bed and in no acute distress with BiPAP in place HEENT--PERRL, EOMI, mucous membranes and oropharynx dry. Neck--supple. No JVD. No bruits. Thyroid normal, trachea midline, no adenopathy. Heart--normal S1 and S2. No murmurs, rubs or gallops. Lungs-coarse breath sounds right greater than left. No respiratory distress, no accessory muscle use. Abdomen--normal bowel sounds and soft. Nontender. Nondistended, no hernias or masses, no organomegaly. Extremities--LLE no cyanosis or clubbing or edema. RLE with boot needs removed for exam Dermatologic--normal skin turgor, normal color, no abnormal lymph nodes, no rash. Neurologic--cranial nerves II through XII grossly intact. Rheumatologic--limited exam due to respiratory status Psychiatric--normal affect. Results & Data Results & Data Vital Signs (Past 12 Hours) Vital Signs Temp Pulse Pulse Resp BP BP Pulse Ox 03/23/25 23:15 82 20 107/42 L 94 03/23/25 22:06 100 H 27 H 98 03/23/25 22:00 90 20 110/73 96 03/23/25 21:44 96 03/23/25 21:37 97 H 03/23/25 21:35 37.1 C 100 H 36 H 110/73 94 O2 Del Method FiO2 03/23/25 23:15 BiPAP 03/23/25 22:06 30 03/23/25 22:00 BiPAP 03/23/25 21:44 Room Air, BiPAP 03/23/25 21:37 03/23/25 21:35 Room Air Laboratory Results Laboratory Results WBC 8.75 K/ul (4.8-10.8) 03/23/25 21:45 RBC 4.34 M/uL (4.20-5.40) 03/23/25 21:45 Hgb 12.5 g/dL (12.0-16.0) 03/23/25 21:45 Hct 38.9 % (37.0-47.0) 03/23/25 21:45 MCV 89.6 fL (80.0-100.0) 03/23/25 21:45 MCH 28.8 pg (25.0-34.0) 03/23/25 21:45 MCHC 32.1 g/dL (32.0-36.0) 03/23/25 21:45 RDW Std Deviation 43.1 fL (36.4-46.3) 03/23/25 21:45 RDW Coeff of Blair 13.2 % (11.5-14.5) 03/23/25 21:45 Plt Count 219 K/uL (130-400) 03/23/25 21:45 MPV 10.1 fL (9.4-12.4) 03/23/25 21:45 Immature Gran % (Auto) 0.2 % 03/23/25 21:45 Neut % (Auto) 69.5 % 03/23/25 21:45 Lymph % (Auto) 19.9 % 03/23/25 21:45 Pender % (Auto) 7.8 % 03/23/25 21:45 Eos % (Auto) 1.7 % 03/23/25 21:45 Baso % (Auto) 0.9 % 03/23/25 21:45 Neut # (Auto) 6.08 K/uL (1.40-6.50) 03/23/25 21:45 Lymph # (Auto) 1.74 K/uL (1.20-3.40) 03/23/25 21:45 Pender # (Auto) 0.68 K/uL (0.11-0.59) H 03/23/25 21:45 Eos # (Auto) 0.15 K/uL (0.00-0.50) 03/23/25 21:45 Baso # (Auto) 0.08 K/uL (0.00-0.20) 03/23/25 21:45 Immature Gran # (Auto) 0.02 K/uL (0.01-0.20) 03/23/25 21:45 PT 11.4 Seconds (9.0-12.0) 03/23/25 21:45 INR 1.1 (0.9-1.1) 03/23/25 21:45 APTT 28 Seconds (21-31) 03/23/25 21:45 PTT Ratio 1.0 03/23/25 21:45 VBG pH 7.30 (7.36-7.41) L 03/23/25 21:45 VBG pCO2 40 mmHg (38-50) 03/23/25 21:45 VBG pO2 34 mmHg 03/23/25 21:45 VBG HCO3 20 mmol/L 03/23/25 21:45 VBG O2 Saturation < 60.0 % 03/23/25 21:45 VBG Base Excess -6.3 mEq/L 03/23/25 21:45 Sodium 140 mmol/L (136-145) 03/23/25 21:45 Potassium 3.7 mmol/L (3.5-5.1) 03/23/25 21:45 Chloride 111 mmol/L (98-107) H 03/23/25 21:45 Carbon Dioxide 20 mmol/L (21-32) L 03/23/25 21:45 Anion Gap 9 (3-11) 03/23/25 21:45 BUN 26 mg/dl (6-23) H 03/23/25 21:45 Creatinine 1.10 mg/dl (0.6-1.2) 03/23/25 21:45 Est Cr Clr Drug Dosing 58.6 ml/min 03/23/25 21:45 eGFR 58.24 03/23/25 21:45 BUN/Creatinine Ratio 23.6 (10-20) H 03/23/25 21:45 Glucose 119 mg/dl (70-99(Fasting)) H 03/23/25 21:45 Lactate 1.3 mmol/L (0.4-2.0) 03/23/25 22:56 Calcium 9.0 mg/dl (8.6-10.3) 03/23/25 21:45 Magnesium 1.9 mg/dl (1.7-2.4) 03/23/25 21:45 Total Bilirubin 0.6 mg/dl (0.2-1.0) 03/23/25 21:45 Direct Bilirubin 0.1 mg/dl (0-0.2) 03/23/25 21:45 AST 28 U/L (13-39) 03/23/25 21:45 ALT 32 U/L (7-52) 03/23/25 21:45 Alkaline Phosphatase 127 U/L (34-104) H 03/23/25 21:45 Troponin I High Sens 43.4 pg/ml (0-14) H D 03/23/25 23:42 C-Reactive Protein 4.58 mg/dl (0-0.5) H 03/23/25 21:45 Total Protein 7.2 gm/dl (6.0-8.3) 03/23/25 21:45 Albumin 3.7 gm/dl (3.4-5.0) 03/23/25 21:45 Procalcitonin 0.04 ng/ml (0-0.5) 03/23/25 21:45 Nasal Screen MRSA (PCR) Negative (Negative) 03/24/25 00:05 SARS-CoV-2 (PCR) NEGATIVE (Negative) 03/23/25 22:12 Influenza Type A (PCR) Negative (Neg) 03/23/25 22:12 Influenza Type B (PCR) Negative (Neg) 03/23/25 22:12 RSV (RT-PCR) Negative (Neg) 03/23/25 22:12 Impressions Chest X-Ray 03/23/25 21:30 Exam(s): XR CXR 1 VIEW EXAM: XR Chest, 1 View CLINICAL HISTORY: Reason for exam: Sepsis. TECHNIQUE: Frontal view of the chest. COMPARISON: Chest x-ray 11/27/2023 FINDINGS: Lungs: Pulmonary vascular congestion. Septal lines. No consolidation. Pleural space: No pleural effusion. No pneumothorax. Heart: Unremarkable. No cardiomegaly. Tubes, lines and devices: Multi lead pacemaker/ICD in place. IMPRESSION: Pulmonary edema. Electronically signed by: José Miguel Lyons MD 03/23/25 22:47 PM Code Status & VTE Plan Code Status Full code VTE Prophylaxis Plan VTE Prophylaxis will be ordered: Yes PG Care Time/CCT Total # of Minutes Spent Total Time Spent with Patient: Total time spent is greater than 50% in coordination of care (as documented) at patient's floor/unit and/or counseling patient: Coding Level of Care Code 09351 INT INP/OBS CARE 3/75MIN Diagnoses Acute respiratory failure with hypoxia J96.01 Acute exacerbation of chronic obstructive pulmonary disease J44.1 Pneumonia J18.9 Acute bronchitis J20.9
[2025-03-24] MEDS ORDERED: ONDANSETRON INJ 2 MG/ML 2 ML VIAL IV PRN (00:18)
[2025-03-24] MEDS: AZITHROMYCIN 500 MG/255 ML BAG IV STA (01:31)
[2025-03-24 05:48] LABS: Hematocrit (blood only) 35.5 % (37.0-47.0); Hemoglobin 11.2 g/dL (12.0-16.0); Mean Corpuscular Hemoglobin 27.9 pg (25.0-34.0); Mean Corpuscular Volume 88.3 fL (80.0-100.0); Platelet Count 207 K/uL (130-400); RDW Standard Deviation 42.5 fL (36.4-46.3); Red Blood Count 4.02 M/uL (4.20-5.40); White Blood Count 6.88 K/ul (4.8-10.8)
[2025-03-24 06:01] LABS: Alanine Aminotransferase 31.0 U/L (7-52); Albumin Globulin Ratio 1.2 (0.9-2); Albumin Level 3.5 gm/dl (3.4-5.0); Alkaline Phosphatase 97.0 U/L (34-104); Anion Gap 10.0 (3-11); Bilirubin,Total 0.4 mg/dl (0.2-1.0); Blood Urea Nitrogen 24.0 mg/dl (6-23); Calcium 8.4 mg/dl (8.6-10.3); Carbon Dioxide 18.0 mmol/L (21-32); Chloride 111.0 mmol/L (98-107); Creatinine Clr Calc Pharmacy 67.2 ml/min; Globulin 2.9 gm/dl (2.5-4.0); Glucose 176.0 mg/dl (70-99(Fasting)); Magnesium 1.9 mg/dl (1.7-2.4); Potassium 3.8 mmol/L (3.5-5.1); Sodium 139.0 mmol/L (136-145); Total Protein 6.4 gm/dl (6.0-8.3)
[2025-03-24 06:15] LABS: Immature Granulocytes # (auto) 0.02 K/uL (0.01-0.20); Immature Granulocytes % (auto) 0.3 %; Polychromasia 1+
[2025-03-24] MEDS: ALBUT/IPRATROP 3MG/0.5MG NEB 3 ML VIAL NEB SCH (07:02)
[2025-03-24] MEDS ORDERED: clonazePAM 1 MG TAB PO PRN (07:21)
[2025-03-24 07:24] LABS: Appearance Urine Cloudy (Clear)
[2025-03-24] MEDS: CEFEPIME 2000MG 2,000 MG/20 ML SYR IV SCH (07:36)
[2025-03-24] MEDS: FUROSEMIDE 40 MG/4 ML VIAL IV SCH (07:43)
[2025-03-24] MEDS: ASPIRIN 81 MG ECTAB PO SCH (08:26)
[2025-03-24] MEDS: ATORVASTATIN 40 MG TAB PO SCH (08:26)
[2025-03-24] MEDS: POTASSIUM CHLORIDE 10 MEQ TABCR PO SCH (08:27)
[2025-03-24] MEDS: CLOPIDOGREL BISULFATE 75 MG TAB PO SCH (08:27)
[2025-03-24] MEDS: TOPIRAMATE 100 MG TAB PO SCH (08:27)
[2025-03-24] MEDS: CALCIUM 600MG + VIT D 400 IU TAB PO SCH (08:27)
[2025-03-24] MEDS: CETIRIZINE HCL 10 MG TABLET PO SCH (08:27)
[2025-03-24] MEDS: METOPROLOL SUCC 50MG EXT REL TAB PO SCH (08:27)
[2025-03-24] MEDS: GABAPENTIN 300 MG CAP PO SCH (08:27)
[2025-03-24] MEDS ORDERED: PANTOprazole 40 MG/10 ML SYR IV SCH (09:00)
--- NOTE | 2025-03-24 10:27 | Hospitalist Progress Note ---
Date of Service March 24, 2025 Assessment & Plan (1) Acute systolic congestive heart failure: Plan: Admission chest x-ray interpreted as pulmonary edema and BNP is greater than 1300. Enteral Lasix ordered along with Junior catheter. Monitor intake and output. Serial chest x-ray. Await current cardiac echo report (2) Acute respiratory failure with hypoxia: Plan: Supplemental oxygen per nasal cannula to maintain saturation greater than 90%. Wean off as tolerated (3) Acute exacerbation of chronic obstructive pulmonary disease: Plan: Scheduled DuoNebs. Treat underlying CHF and bronchitis (4) Acute bronchitis: Plan: Suspected on admission. Sputum culture ordered and pending. Continue azithromycin and cefepime for now, day 2 Plan To be determined. OT and PT assessments will be ordered when appropriate Admission and Anticipated Discharge Date Admission Date: March 23, 2025 Subjective Alert and oriented. No acute distress. She has inspiratory rales on examination and admission chest x-ray was interpreted as pulmonary edema. BNP is 1320. She has exacerbation of her COPD but I also believe she has acute systolic CHF. IV Lasix ordered and Junior catheter will be inserted. Cardiac echo has been done and the report is pending. She remains on azithromycin and cefepime, day 2 Review of Systems 2 Review of Systems: Constitutionalno fever or chills ENTno blurred vision, no double vision, no epistaxis, no sore throat Respiratorydyspnea on exertion. Nonproductive cough. No hemoptysis Cardiacno palpitations, no chest pain, no syncope Ciro nausea, vomiting, diarrhea, melena, hematochezia GUno urinary retention, no urinary incontinence, no dysuria, no hematuria Musculoskeletalno joint pain, no muscle tenderness Skinno bruising, no rashes, no pruritus Neurono isolated weakness, no paresthesia, no weakness Psychno depression, no anxiety Physical Exam 2 Physical Exam: General-alert and oriented x3, no fever, no chills HEENT-head atraumatic and normocephalic, pupils equal and reactive to light, extraocular muscles intact Neck-no lymphadenopathy or thyromegaly, trachea midline Chest-bibasilar inspiratory rales. Scant midline rhonchi. No wheezing. Cardiac-regular rate and rhythm, normal S1 and S2 Abdomen-normal bowel sounds, no hepatosplenomegaly Extremities-less than 1+ pitting edema bilateral lower extremities below the knees. Neuro-cranial nerves II through XII intact, motor and sensory function within normal limits, strength symmetrical, no focal deficits Psych-flat affect Results & Data Results & Data Vital Signs (Past 12 Hours) Vital Signs Temp Pulse Pulse Resp BP Pulse Ox O2 Del Method 03/24/25 09:04 77 16 110/51 L 95 Room Air 03/24/25 07:36 77 03/24/25 07:04 68 14 99 Room Air 03/24/25 06:00 63 18 100/54 L 98 BiPAP 03/24/25 05:00 36.8 C 64 20 99/54 L 97 BiPAP 03/24/25 04:21 96 H 18 102/54 L 96 Room Air 03/24/25 03:47 90 24 97 03/24/25 02:11 BiPAP 03/24/25 02:11 36.7 C 74 20 105/55 L 97 BiPAP 03/24/25 02:08 36.8 C 73 20 105/55 L 97 BiPAP 03/24/25 01:30 74 18 105/56 L 98 BiPAP 03/24/25 01:09 75 03/24/25 01:00 97 H 24 97 03/24/25 00:19 78 18 118/57 L 95 BiPAP 03/23/25 23:15 82 20 107/42 L 94 BiPAP FiO2 03/24/25 09:04 03/24/25 07:36 03/24/25 07:04 21 03/24/25 06:00 03/24/25 05:00 03/24/25 04:21 03/24/25 03:47 30 03/24/25 02:11 03/24/25 02:11 03/24/25 02:08 03/24/25 01:30 03/24/25 01:09 03/24/25 01:00 30 03/24/25 00:19 03/23/25 23:15 Laboratory Results 03/24/25 04:08 03/24/25 04:08 PG Care Time/CCT Total # of Minutes Spent Total Time Spent with Patient: Total time spent is greater than 50% in coordination of care (as documented) at patient's floor/unit and/or counseling patient: Coding Level of Care Code 79150 SUB INP/OBS CARE 3/50MIN Diagnoses Acute systolic congestive heart failure I50.21 Acute respiratory failure with hypoxia J96.01 Acute exacerbation of chronic obstructive pulmonary disease J44.1 Acute bronchitis J20.9
[2025-03-24] MEDS ORDERED: ALBUT/IPRATROP 3MG/0.5MG NEB 3 ML VIAL NEB PRN (11:24)
--- NOTE | 2025-03-24 12:09 | XCELERA ---
[id number]
--- NOTE | 2025-03-24 18:47 | Electrocardiogram Report ---
Test Reason : Blood Pressure : */* mmHG Vent. Rate : 94 BPM Atrial Rate : 94 BPM P-R Int : 166 ms QRS Dur : 150 ms QT Int : 446 ms P-R-T Axes : 64 11 72 degrees QTcB Int : 557 ms Sinus rhythm with frequent Premature ventricular complexes Left bundle branch block Abnormal ECG When compared with ECG of 22-Mar-2022 13:12, Sinus rhythm has replaced Electronic atrial pacemaker Vent. rate has increased by 34 bpm Left bundle branch block is now Present Borderline criteria for Lateral infarct are no longer Present Confirmed by Anurag Angel ([id number]) on 03/24/2025 6:46:54 PM Referred By: REFERRED SELF Confirmed By: Anurag Angel
[2025-03-24] MEDS: clonazePAM 1 MG TAB PO SCH (20:39)
[2025-03-25 06:02] LABS: Hematocrit (blood only) 36.6 % (37.0-47.0); Hemoglobin 12.0 g/dL (12.0-16.0); Immature Granulocytes # (auto) 0.02 K/uL (0.01-0.20); Immature Granulocytes % (auto) 0.2 %; Mean Corpuscular Hemoglobin 28.6 pg (25.0-34.0); Mean Corpuscular Volume 87.1 fL (80.0-100.0); Platelet Count 251 K/uL (130-400); RDW Standard Deviation 40.9 fL (36.4-46.3); Red Blood Count 4.20 M/uL (4.20-5.40); White Blood Count 8.58 K/ul (4.8-10.8)
[2025-03-25 06:43] LABS: Alanine Aminotransferase 33.0 U/L (7-52); Albumin Globulin Ratio 1.2 (0.9-2); Albumin Level 3.8 gm/dl (3.4-5.0); Alkaline Phosphatase 110.0 U/L (34-104); Anion Gap 11.0 (3-11); Bilirubin,Total 0.3 mg/dl (0.2-1.0); Blood Urea Nitrogen 34.0 mg/dl (6-23); Calcium 9.2 mg/dl (8.6-10.3); Carbon Dioxide 23.0 mmol/L (21-32); Chloride 109.0 mmol/L (98-107); Creatinine Clr Calc Pharmacy 57.1 ml/min; Globulin 3.2 gm/dl (2.5-4.0); Glucose 151.0 mg/dl (70-99(Fasting)); Magnesium 2.1 mg/dl (1.7-2.4); Potassium 3.8 mmol/L (3.5-5.1); Sodium 143.0 mmol/L (136-145); Total Protein 7.0 gm/dl (6.0-8.3)
--- NOTE | 2025-03-25 11:57 | Hospitalist Progress Note ---
Date of Service March 25, 2025 Assessment & Plan (1) Acute systolic congestive heart failure: Plan: Admission chest x-ray interpreted as pulmonary edema and BNP was greater than 1300. Brisk diuresis has ensued with parenteral Lasix therapy. Monitor intake and output. Will repeat chest x-ray again tomorrow, March 26. Cardiac echo report noted. Ejection fraction has dropped to 30% from 40% with diastolic dysfunction, moderately severe mitral regurgitation, mild aortic insufficiency seen. Left ventricular function is likely to return back to her baseline once the CHF resolves and cardiac echo could be repeated as an outpatient (2) Acute respiratory failure with hypoxia: Plan: Resolved. She is now on room air (3) Acute exacerbation of chronic obstructive pulmonary disease: Plan: Resolved. Treat underlying CHF and bronchitis (4) Acute bronchitis: Plan: Suspected on admission. Sputum culture is nondiagnostic. Continue azithromycin and cefepime for now, day 3. Probable discontinuation at discharge Plan Hopeful discharge to home tomorrowMarch 26 . Physical therapy evaluation has been requested Admission and Anticipated Discharge Date Admission Date: March 23, 2025 Subjective Alert and oriented. No new problems. She is experiencing a brisk diuresis with the parenteral Lasix and her blood pressure is a little on the low side but acceptable. She is on room air. Parenteral steroid therapy has been discontinued. Will repeat chest x-ray again tomorrow, March 26. Physical therapy assessment has been requested. Cardiac echo reveals ejection fraction down to 30% from previous 40% with diastolic dysfunction, moderately severe mitral regurgitation, and mild aortic insufficiency. Hopefully she can go home tomorrow, March 26. Junior catheter will be removed before discharge Review of Systems 2 Review of Systems: Constitutionalno fever or chills ENTno blurred vision, no double vision, no epistaxis, no sore throat Respiratorymild dyspnea on exertion. Nonproductive cough has resolved. No hemoptysis Cardiacno palpitations, no chest pain, no syncope Ciro nausea, vomiting, diarrhea, melena, hematochezia GUno urinary retention, no urinary incontinence, no dysuria, no hematuria Musculoskeletalno joint pain, no muscle tenderness Skinno bruising, no rashes, no pruritus Neurono isolated weakness, no paresthesia, no weakness Psychno depression, no anxiety Physical Exam 2 Physical Exam: General-alert and oriented x3, no fever, no chills HEENT-head atraumatic and normocephalic, pupils equal and reactive to light, extraocular muscles intact Neck-no lymphadenopathy or thyromegaly, trachea midline Chest-bibasilar inspiratory rales have diminished but still persist. Midline rhonchi have resolved. No wheezing. Cardiac-regular rate and rhythm, normal S1 and S2 Abdomen-normal bowel sounds, no hepatosplenomegaly Extremities-less than 1+ pitting edema bilateral lower extremities below the knees has resolved Neuro-cranial nerves II through XII intact, motor and sensory function within normal limits, strength symmetrical, no focal deficits Psych-flat affect Results & Data Results & Data Vital Signs (Past 12 Hours) Vital Signs Temp Pulse Pulse Resp BP Pulse Ox O2 Del Method 03/25/25 11:24 37.3 C 72 18 98/62 L 94 Room Air 03/25/25 09:02 Room Air 03/25/25 08:00 65 03/25/25 08:00 36.8 C 71 18 103/67 95 Room Air 03/25/25 03:00 36.9 C 63 20 108/69 91 Room Air Laboratory Results 03/25/25 05:47 03/25/25 05:47 PG Care Time/CCT Total # of Minutes Spent Total Time Spent with Patient: Total time spent is greater than 50% in coordination of care (as documented) at patient's floor/unit and/or counseling patient: Coding Level of Care Code 42926 SUB INP/OBS CARE 3/50MIN Diagnoses Acute systolic congestive heart failure I50.21 Acute respiratory failure with hypoxia J96.01 Acute exacerbation of chronic obstructive pulmonary disease J44.1 Acute bronchitis J20.9
[2025-03-25] MEDS: AZITHROMYCIN 500 MG/255 ML BAG IV SCH (23:31)
[2025-03-26 06:29] LABS: Hematocrit (blood only) 38.2 % (37.0-47.0); Hemoglobin 12.3 g/dL (12.0-16.0); Immature Granulocytes # (auto) 0.04 K/uL (0.01-0.20); Immature Granulocytes % (auto) 0.4 %; Mean Corpuscular Hemoglobin 28.0 pg (25.0-34.0); Mean Corpuscular Volume 86.8 fL (80.0-100.0); Platelet Count 223 K/uL (130-400); RDW Standard Deviation 42.2 fL (36.4-46.3); Red Blood Count 4.40 M/uL (4.20-5.40); White Blood Count 10.54 K/ul (4.8-10.8)
[2025-03-26 07:04] LABS: Alanine Aminotransferase 28.0 U/L (7-52); Albumin Globulin Ratio 1.2 (0.9-2); Albumin Level 3.7 gm/dl (3.4-5.0); Alkaline Phosphatase 99.0 U/L (34-104); Anion Gap 11.0 (3-11); Bilirubin,Total 0.4 mg/dl (0.2-1.0); Blood Urea Nitrogen 50.0 mg/dl (6-23); Calcium 9.0 mg/dl (8.6-10.3); Carbon Dioxide 25.0 mmol/L (21-32); Chloride 106.0 mmol/L (98-107); Creatinine Clr Calc Pharmacy 44.8 ml/min; Globulin 3.1 gm/dl (2.5-4.0); Glucose 92.0 mg/dl (70-99(Fasting)); Magnesium 2.1 mg/dl (1.7-2.4); Potassium 3.1 mmol/L (3.5-5.1); Sodium 142.0 mmol/L (136-145); Total Protein 6.8 gm/dl (6.0-8.3)
--- NOTE | 2025-03-26 07:14 | XRay Report ---
EXAM: XR chest 1V portable CLINICAL HISTORY: CHF TECHNIQUE: An X-ray image of the chest is obtained in AP portable projection. COMPARISON: 03/23/2025 FINDINGS: Cardiac pacemaker in place. Pulmonary Parenchyma: Haziness noted in the left lower zone with blunting of the costophrenic angle and obscuration of the left hemidiaphragm may be due to underlying effusion with atelectasis/consolidation. No pulmonary nodules are identified. Heart and Mediastinum: curvilinear calcification in the aortic knuckle. Heart size cannot be commented upon due to AP projection. No mediastinal widening or masses. Bony Thorax: Bony thorax appears intact without fractures or deformities. Soft Tissues: Soft tissues overlying the chest wall are unremarkable. IMPRESSION: 1. Haziness noted in the left lower zone with blunting of the costophrenic angle and obscuration of the left hemidiaphragm. New findings, may be due to MILD effusion with atelectasis/consolidation. 2. Needs clinical correlation. Electronically signed by Jakob Thayer 03-26-2025 07:14 AM
[2025-03-26] MEDS: POTASSIUM CHLORIDE CRTAB 20 MEQ TABCR PO STA (08:25)
[2025-03-26 08:34] VITALS: RESP 17
--- NOTE | 2025-03-26 09:56 | Hospitalist Progress Note ---
Date of Service March 26, 2025 Assessment & Plan (1) Acute systolic congestive heart failure: Plan: Admission chest x-ray interpreted as pulmonary edema and BNP was greater than 1300. Brisk diuresis has ensued with parenteral Lasix therapy. Monitor intake and output. Chest x-ray done today, March 26, is now clear. Cardiac echo report noted. Ejection fraction has dropped to 30% from 40% with diastolic dysfunction, moderately severe mitral regurgitation, mild aortic insufficiency seen. Left ventricular function is likely to return back to her baseline once the CHF resolves and cardiac echo could be repeated as an outpatient (2) Acute respiratory failure with hypoxia: Plan: Resolved. She is now on room air (3) Acute exacerbation of chronic obstructive pulmonary disease: Plan: Resolved. Treated underlying CHF and bronchitis (4) Acute bronchitis: Plan: Suspected on admission. Sputum culture is nondiagnostic. Treated while hospitalized with azithromycin and cefepime. Antibiotics were discontinued today, March 26. Plan Hopeful discharge to home later today, March 26, if she is able to ambulate with the use of a walker. Home health services will be requested Admission and Anticipated Discharge Date Admission Date: March 23, 2025 Subjective Alert and oriented. She expressed her wishes to be discharged today, March 26. Chest x-ray done today reveals resolution of CHF. Blood pressure is running a little bit on the low side and metoprolol will be held today. She is on room air. Antibiotic therapy has been discontinued. Potassium is low at 3.1 and additional oral supplementation ordered. IV Lasix discontinued. She probably should remain on Lasix 40 mg once daily at the time of discharge. She states she has not been out of bed yet and the nurse will get her up and ambulate with the use of a walker to see if she is able to go home later today, March 26 Review of Systems 2 Review of Systems: Constitutionalno fever or chills ENTno blurred vision, no double vision, no epistaxis, no sore throat RespiratoryDOE has resolved. Nonproductive cough has resolved. No hemoptysis Cardiacno palpitations, no chest pain, no syncope Ciro nausea, vomiting, diarrhea, melena, hematochezia GUno urinary retention, no urinary incontinence, no dysuria, no hematuria Musculoskeletalno joint pain, no muscle tenderness Skinno bruising, no rashes, no pruritus Neurono isolated weakness, no paresthesia, no weakness Psychno depression, no anxiety Physical Exam 2 Physical Exam: General-alert and oriented x3, no fever, no chills HEENT-head atraumatic and normocephalic, pupils equal and reactive to light, extraocular muscles intact Neck-no lymphadenopathy or thyromegaly, trachea midline Chest-lungs are now clear. Rales have resolved. Midline rhonchi have resolved. No wheezing. Cardiac-regular rate and rhythm, normal S1 and S2 Abdomen-normal bowel sounds, no hepatosplenomegaly Extremities-less than 1+ pitting edema bilateral lower extremities below the knees has resolved Neuro-cranial nerves II through XII intact, motor and sensory function within normal limits, strength symmetrical, no focal deficits Psych-flat affect Results & Data Results & Data Vital Signs (Past 12 Hours) Vital Signs Temp Pulse Resp BP Pulse Ox O2 Del Method 03/26/25 08:39 Room Air 03/26/25 08:32 36.8 C 60 17 90/60 L 96 Room Air 03/26/25 02:55 36.7 C 57 L 16 94/59 L 97 Room Air 03/25/25 22:55 Room Air 03/25/25 22:50 36.9 C 55 L 18 100/65 93 Room Air Laboratory Results 03/26/25 05:45 03/26/25 05:45 PG Care Time/CCT Total # of Minutes Spent Total Time Spent with Patient: Total time spent is greater than 50% in coordination of care (as documented) at patient's floor/unit and/or counseling patient: Coding Level of Care Code 82520 SUB INP/OBS CARE 3/50MIN Diagnoses Acute systolic congestive heart failure I50.21 Acute respiratory failure with hypoxia J96.01 Acute exacerbation of chronic obstructive pulmonary disease J44.1 Acute bronchitis J20.9
[2025-03-26 12:41] VITALS: TEMP 98.4; O2SAT 95
[2025-03-26] MEDS: SODIUM CHLORIDE 0.9% 250 ML IV ONE (13:15)
--- NOTE | 2025-03-26 14:04 | Discharge Summary ---
Discharge Summary Date of Service March 26, 2025 Principal Dx & Hospital Course #1 = Principal Diagnosis (1) Acute systolic congestive heart failure: Admission chest x-ray interpreted as pulmonary edema and BNP was greater than 1300. Brisk diuresis has ensued with parenteral Lasix therapy. Monitor intake and output. Chest x-ray done today, March 26, is now clear. Cardiac echo report noted. Ejection fraction has dropped to 30% from 40% with diastolic dysfunction, moderately severe mitral regurgitation, mild aortic insufficiency seen. Left ventricular function is likely to return back to her baseline once the CHF resolves and cardiac echo could be repeated as an outpatient (2) Acute respiratory failure with hypoxia: Resolved. She is now on room air (3) Acute exacerbation of chronic obstructive pulmonary disease: Resolved. Treated underlying CHF and bronchitis (4) Acute bronchitis: Suspected on admission. Sputum culture is nondiagnostic. Treated while hospitalized with azithromycin and cefepime. Antibiotics were discontinued today, March 26. Plan Although she did not do well with physical therapy, the family is insistent that they can provide the services at home that she needs. A prescription for Lasix 40 mg once daily to be taken in the early afternoon was provided for the patient. All other medications remain the same. She was instructed to see her primary care provider soon as possible. Home health services have been requested. Admission HPI Per Admitting Provider The patient is a 60-year-old female with past medical history including COPD, headache, stroke, right leg weakness, AICD discharge 04-14-2013, cardiomyopathy, CKD stage III, depression, and tobacco use. She presents to the emergency department with concerns regarding shortness of breath for the past 3 to 4 days, has worsened today prior to arrival. EMS reportedly found her open mouth breathing, and unable to speak. She was given Solu-Medrol 40 mg IV and 2 DuoNeb treatments prior to arrival. Upon arrival, she was able to speak in short sentences. She was placed on BiPAP with improved oxygenation to O2 sat of 97%. She notes a cough productive of brown sputum. Significant laboratory abnormalities: Troponin 28.9, hemoglobin 12.5, potassium 3.7, CRP 4.58, glucose 119, magnesium 1.9. Chest x-ray with ICD, and right upper lobe infiltrate. From the ED she received the following: Ceftriaxone 2 g IV, and normal saline 500 mL bolus. She was then referred for evaluation for admission, admitted to hospitalist service Discharge Exam General-alert and oriented x3, no fever, no chills HEENT-head atraumatic and normocephalic, pupils equal and reactive to light, extraocular muscles intact Neck-no lymphadenopathy or thyromegaly, trachea midline Chest-lungs are now clear. Rales have resolved. Midline rhonchi have resolved. No wheezing. Cardiac-regular rate and rhythm, normal S1 and S2 Abdomen-normal bowel sounds, no hepatosplenomegaly Extremities-less than 1+ pitting edema bilateral lower extremities below the knees has resolved Neuro-cranial nerves II through XII intact, motor and sensory function within normal limits, strength symmetrical, no focal deficits Psych-flat affect Discharge Plan Discharge Items Patient Disposition: Home - Home Health Services Reason For Visit: COPD EX, ACUTE RESP FAILURE WITH HYPOXIA Discharge Diagnosis: Acute systolic congestive heart failure, acute hypoxic respiratory failure, exacerbation COPD Condition on Discharge: Fair Activity: Resume your previous activity Non-emergency contact: Primary Care Provider Call non-emergency contact if: you have any medication questions and your symptoms worsen Follow-up/Referrals: Davin Khan PA-C [Primary Care Provider] - Diet: Regular and Heart Healthy Addtl Attending Provider Instructions: Take Lasix 40 mg daily in the early afternoon. A prescription has been sent to your pharmacy. All other medications remain the same. See your primary care provider soon as possible. Home health services have been requested Pending Studies at Discharge: No Stand-Alone Forms: My [facility], Smoking Cessation Medications and DC Order Prescriptions: New furosemide [Lasix] 40 mg tablet 40 mg PO DAILY Qty: 30 0RF Continued topiramate 200 mg tablet 200 mg PO BID 30 Days Qty: 60 5RF Rx Instructions: take 100 mg in the morning, and 200 mg in the evening for 1 week, then 200 mg twice daily thereafter. clonazepam 1 mg tablet 1 mg PO TID clopidogrel [Plavix] 75 mg tablet 75 mg PO DAILY gabapentin 300 mg capsule 300 mg PO DAILY melatonin 1 tab PO HS PRN (Reason: Sleep) pantoprazole 20 mg tablet,delayed release (DR/EC) 20 mg PO BID bupropion HCl [Wellbutrin XL] 300 mg tablet extended release 24 hr 300 mg PO QAM atorvastatin 40 mg tablet 40 mg PO DAILY potassium chloride 10 mEq Tablet Extended Release 10 meq PO DAILY calcium carbonate 600 mg calcium (1,500 mg) tablet 600 mg PO TID metoprolol succinate 50 mg tablet extended release 24 hr 25 mg PO BID cetirizine [Zyrtec] 10 mg Tablet 10 mg PO DAILY Qty: 30 0RF omeprazole 20 mg Tablet,Delayed Release (Dr/Ec) 20 mg PO BID Qty: 60 0RF aspirin 81 mg Tablet,Delayed Release (Dr/Ec) 81 mg PO QAM Qty: 30 0RF nitroglycerin 400 mcg/spray spray,non-aerosol 1 spray sublingual Q5M PRN (Reason: chest pain) Qty: 4.9 0RF memantine 5 mg tablet 5 mg PO DAILY Discontinued furosemide 20 mg tablet 20 mg PO DAILY PRN (Reason: Fluid Retention) Discharge Orders: Discharge Order- CHF (Routine); Ordered 03/26/25 Ordered By: José Luis Floyd Admission Data Admit Date/Time: 03/23/25 23:53 Attending Provider: José Luis Floyd Admit Provider: Norris Contreras Primary Care Provider: Davin Khan Other Providers: Norris Contreras Hospital Stay Data Consultations 03/23/25 23:00 ED Decision to Admit Stat Pending Results Patient Have Any Pending Studies at Discharge: No Discharge Instructions Given to Patient (Per Discharging Provider) Take Lasix 40 mg daily in the early afternoon. A prescription has been sent to your pharmacy. All other medications remain the same. See your primary care provider soon as possible. Home health services have been requested Total Time Total Time Spent Total Time Spent (In Minutes): 45 minutes total time included patient exam, discharge planning, medication reconciliation. Coding Level of Care Code 51083 INP/OBS DISCH >30 MIN Diagnoses Acute systolic congestive heart failure I50.21 Acute respiratory failure with hypoxia J96.01 Acute exacerbation of chronic obstructive pulmonary disease J44.1 Acute bronchitis J20.9
[2025-03-26 14:35] VITALS: BP 97/70
[2025-03-26 15:11] VITALS: PULSE 62
== END 2025-03-26 15:14 | disposition home health service (06) | DRG 291 ==
LOC: ED 21:23 → EDINP 23:53 → SUATTDRO 23:53 → EDINP 03-24 00:18 → 4W 03-24 13:31